=== PATIENT | male | born 1950 | race Caucasian/White ===

== ENCOUNTER → 2017-06-05 12:09 | Outpatient (CLI) | payer MEDICARE, OTHER, SELFPAY | PROVIDERS: Family Provider Family Medicine; PCP Family Medicine; Visit Provider Internal Medicine Pulmonary Disease | DX: J44.9 Chronic obstructive pulmonary disease, unspecified (principal) | CPT/HCPCS: 87070; 87077; 87186; 87205 ==

== ENCOUNTER 2017-08-19 09:42 | Inpatient (IN) | payer MEDICARE, OTHER, SELFPAY ==
--- NOTE | 2017-08-19 11:02 | RAD_ITS ---
STUDY: X-RAY CHEST REASON FOR EXAM: Male, 67 years old. Shortness of breath. History of lung cancer status post right pneumonectomy. TECHNIQUE: Single frontal view of the chest. COMPARISON: December 29, 2016 FINDINGS: The left lung is hyperexpanded and unchanged. There are changes of pneumonectomy on the right with calcification unaltered. There is no demonstrated pleural abnormality. Normal size heart. Normal mediastinum and adolfo. Normal visualized pulmonary arteries. Normal visualized aortic arch and descending thoracic aorta. Normal visualized thoracic spine. Normal visualized ribs, clavicles, and shoulders. There is no demonstrated abnormality of the visualized soft tissue structures of the upper abdomen. RAD/Chest 1 View (Portable) IMPRESSION: Stable appearance of the chest with no new or acute pathology. Electronically Signed: Gerald Tyson MD at 11:33 EDT , Service support ,
--- NOTE | 2017-08-19 12:05 | EKG12_ITS ---
Test Reason : SOB Blood Pressure : / mmHG Vent. Rate : 088 BPM Atrial Rate : 088 BPM P-R Int : 168 ms QRS Dur : 082 ms QT Int : 354 ms P-R-T Axes : 039 -10 044 degrees QTc Int : 428 ms Normal sinus rhythm Normal ECG Confirmed by CARLOS ZEPEDA, REBEL ([id number]), order editor KEYUR MARINELLI ([id number] on 08/25/2017 5:23:47 PM Referred By: Jeferson Burns Confirmed By:REBEL GONZALEZ MD
--- NOTE | 2017-08-19 14:55 | DT_ITS ---
This patient was seen during an EMR downtime August 16, 2017 - August 23, 2017. This patient may have a combination of paper and electronic documentation or all paper documentation. All documentation is viewable within the e-chart portion of [facility] for each patient visit.
--- NOTE | 2017-08-19 16:20 | CT_ITS ---
STUDY: CT CHEST WITHOUT CONTRAST REASON FOR EXAM: Male, 67 years old. Dyspnea and cough RADIATION DOSAGE (If Supplied By Facility): CTDIvol = ( 6.89 ) mGy, DLP = ( 246.37 ) mGycm TECHNIQUE: Transaxial imaging was performed without the administration of intravenous contrast material. Individualized dose optimization techniques were used for this CT. COMPARISON: None. FINDINGS: The right lung have been removed. There is hyperinflation and emphysema in the left lung, ill-defined groundglass opacities are seen in the left lung base may represent superimposed pneumonia. There is no demonstrated pleural abnormality. Normal heart and pericardium. Normal mediastinum. Normal hilar regions. Normal unenhanced pulmonary arteries. Normal aorta arch and descending thoracic aorta. There is demineralization of the thoracic spine. Mild compression fractures of T3, T4, T6 and T9 are noted are new since the previous study from 06/15/2013. There is no demonstrated abnormality of the visualized upper abdomen. CT/Chest without Contrast IMPRESSION: Left lower lobe pneumonia. Osteoporotic compression fractures of T3, T4, T6, T9 are new since the previous study. Electronically Signed: Yosvany Chandler MD at 8:08 EDT Tel , Service support ,
[2017-08-21 13:49] LABS: BUN 17 mg/dL (7-18); Glucose 89 mg/dL (74-106)
[2017-08-21 13:50] LABS: ALB/GLOB Ratio 0.9 RATIO (0.9-2.4); AST(SGOT) 20 U/L (15-37); Alanine Aminotransfer ALT/SGPT 26 U/L (16-61); Albumin, Serum 4.2 g/dL (3.2-5.0); Alkaline Phosphatase 56 U/L (45-117); Anion Gap 12 (5-15); BUN/Creat Ratio 15.3 RATIO (10-20); Calcium,Total 9.7 mg/dL (8.5-10.1); Chloride 102 mmol/L (98-107); Creatinine, Serum 1.11 mg/dL (0.70-1.30); EST Glomerular Filtration Rate 70 mL/min (>60); Est Glom Filt Rate - Afr Amer 85 mL/min (>60); Globulin 4.8 g/dL (2.2-4.2); Potassium 4.1 mmol/L (3.5-5.1); Sodium Level 139 mmol/L (136-145)
[2017-08-22 12:41] LABS: Absolute Lymphocyte Count 1.27 X10^3/ul (0.83-4.51); Absolute Neutrophil Count 6.2 X10^3/uL (2.0-7.7); Basophil% 0.3 % (0-1); Eosinophils% 2.3 % (0-5); Hematocrit 43.6 % (40-54); Hemoglobin 14.4 g/dl (13.0-16.5); Lymphocyte # 1.27 X10^3/ul (4.0); Lymphocyte % 14.6 % (19-41); Mean Corpuscular Hgb 32.1 pg (27.0-32.0); Mean Corpuscular Volume 97.3 fL (80-94); Mean Platelet Vol. 10.4 fl (6.2-12.0); Monocyte% 9.9 % (0-10); Neutrophil # 6.23 X10^3/uL (2.7-7.7); Neutrophil % 71.9 % (47-70); POSITIVE COUNT NO; POSITIVE DIFFERENTIAL NO; POSITIVE MORPHOLOGY NO; Platelet Count 401 K/mm3 (150-450); RBC Distribution Width CV 13.8 % (11.6-14.6); RBC Distribution Width SD 47.8 fl (35.1-43.9); Red Blood Count 4.48 M/mm3 (4.6-6.2); White Blood Count 8.7 K/mm3 (4.4-11.0)
[2017-08-22 12:42] LABS: Basophil# 0.03 X10^3/uL; Monocyte# 0.86 X10^3/uL; Prothrombin Time (Protime)PT. 13.3 SECONDS (11.7-14.9)
[2017-08-23 11:29] LABS: Hematocrit 35.1 % (40-54); Hemoglobin 11.5 g/dl (13.0-16.5); Mean Corp Hgb Conc 32.8 g/gl (32-36); Mean Corpuscular Hgb 31.9 pg (27.0-32.0); Mean Corpuscular Volume 97.2 fL (80-94); Mean Platelet Vol. 10.2 fl (6.2-12.0); Platelet Count 381 K/mm3 (150-450); RBC Distribution Width CV 13.7 % (11.6-14.6); RBC Distribution Width SD 46.6 fl (35.1-43.9); Red Blood Count 3.61 M/mm3 (4.6-6.2); Scan Indicated on CBC? Y/N NO; White Blood Count 7.1 K/mm3 (4.4-11.0)
== END 2017-08-22 11:45 | disposition home or self-care (01) | DRG 189 ==
LOC: ED 14:55 → MS3 14:56
PROVIDERS: Admitting Provider Internal Medicine; Emergency Provider Emergency Medicine; Family Provider Family Medicine; PCP Family Medicine; Visit Provider Internal Medicine
DX: J96.01 Acute respiratory failure with hypoxia (principal); J47.0 Bronchiectasis with acute lower respiratory infection; E44.0 Moderate protein-calorie malnutrition; A49.01 Methicillin susceptible Staphylococcus aureus infection, unspecified site; J44.9 Chronic obstructive pulmonary disease, unspecified; R63.4 Abnormal weight loss; I10 Essential (primary) hypertension; E78.5 Hyperlipidemia, unspecified; F41.9 Anxiety disorder, unspecified; Z85.118 Personal history of other malignant neoplasm of bronchus and lung; Z90.2 Acquired absence of lung [part of]
CPT/HCPCS: 36415; 71045; 71250; 80053; 84484; 85025; 85027; 85610; 87040; 87070; 87077; 87186; 87205; 93005; 94640; 94762; 96365; 96366; 96368; 97802; 99284; J7030; J7050; A4216

== ENCOUNTER → 2017-10-05 08:00 | Outpatient (CLI) | payer MEDICARE, OTHER, SELFPAY | PROVIDERS: Family Provider Family Medicine; PCP Family Medicine; Visit Provider Internal Medicine Pulmonary Disease | DX: J47.9 Bronchiectasis, uncomplicated (principal) | CPT/HCPCS: 87070; 87077; 87186; 87205 ==

== ENCOUNTER → 2017-11-19 09:30 | Outpatient (CLI) | payer MEDICARE, OTHER, SELFPAY | PROVIDERS: Family Provider Family Medicine; PCP Family Medicine; Visit Provider Internal Medicine Pulmonary Disease | DX: J44.9 Chronic obstructive pulmonary disease, unspecified (principal); Z86.19 Personal history of other infectious and parasitic diseases | CPT/HCPCS: 87070; 87077; 87186; 87205 ==

== ENCOUNTER → 2017-11-26 15:02 | Outpatient (CLI) | payer MEDICARE, OTHER, SELFPAY ==
--- NOTE | 2017-11-26 15:08 | RAD_ITS ---
STUDY: X-RAY CHEST REASON FOR EXAM: Male, 67 years old. Fever and cough TECHNIQUE: PA and lateral views of the chest. COMPARISON: 08/19/2017 FINDINGS: Again evidence of previous right pneumonectomy Left lung shows chronic interstitial changes without a superimposed process. There is no demonstrated pleural abnormality. Normal size heart. Normal mediastinum and adolfo. Normal visualized pulmonary arteries. Normal visualized aortic arch and descending thoracic aorta. Normal visualized thoracic spine. Postsurgical changes noted in the right ribs. There is no demonstrated abnormality of the visualized soft tissue structures of the upper abdomen. RAD/Chest PA and Lateral IMPRESSION: No interval change Electronically Signed: Td March MD at 15:43 EDT , Service support ,
== END ==
PROVIDERS: Family Provider Family Medicine; PCP Family Medicine; Visit Provider Internal Medicine Pulmonary Disease
DX: J44.9 Chronic obstructive pulmonary disease, unspecified (principal); R05 Cough
CPT/HCPCS: 71046

== ENCOUNTER → 2017-12-20 14:16 | Outpatient (CLI) | payer MEDICARE, OTHER, SELFPAY | PROVIDERS: Family Provider Family Medicine; PCP Family Medicine; Referring Provider Internal Medicine Pulmonary Disease; Visit Provider Internal Medicine Pulmonary Disease | DX: R05 Cough (principal) | CPT/HCPCS: 87070; 87077; 87186; 87205 ==

== ENCOUNTER → 2018-01-13 16:40 | Outpatient (CLI) | payer MEDICARE, OTHER, SELFPAY | PROVIDERS: Family Provider Family Medicine; PCP Family Medicine; Referring Provider Internal Medicine Pulmonary Disease; Visit Provider Internal Medicine Pulmonary Disease | DX: R19.7 Diarrhea, unspecified (principal) | CPT/HCPCS: 87493 ==

== ENCOUNTER → 2018-02-11 13:17 | Outpatient (CLI) | payer MEDICARE, OTHER, SELFPAY ==
--- OUTSIDE RECORDS SUMMARY | 2018-04-08 12:27 | XMS RPT_ITS ---
:1950 Author Organization OH[employer] Support Name Relationship Address Phone CARR, YESENIA Unavailable [address] + [place] [address] R Unavailable Unavailable Unavailable CARR, YESENIA Unavailable [address] + [place] [address] R Unavailable Unavailable Unavailable CARR, YEESNIA Unavailable [address] + [place] [address] R Unavailable Unavailable Unavailable CARR, YESENIA Unavailable [address] + [place] [address] R Unavailable Unavailable Unavailable CARR, YESENIA Unavailable [address] + [place] [address] R Unavailable Unavailable Unavailable CARR, YESENIA Unavailable [address] + [place] [address] R Unavailable Unavailable Unavailable CARR, YESENIA Unavailable [address] + [place] [address] R Unavailable Unavailable Unavailable CARR, YESENIA Unavailable [address] + [place] [address] R Unavailable Unavailable Unavailable CARR, YESENIA Unavailable [address] + [place] [address] R Unavailable Unavailable Unavailable CARR, YESENIA Unavailable [address] + [place] [address] R Unavailable Unavailable Unavailable CARR, YESENIA Unavailable [address] + [place] [address] R Unavailable Unavailable Unavailable CARR, YESENIA Unavailable [address] + [place] [address] R Unavailable Unavailable Unavailable Care Team Providers Name Role Phone Pj Graham Attending Unavailable Chidi Marinelli Primary Care Unavailable Jeferson Burns Attending Unavailable Tereletsky, Jeferson Referring Unavailable Marinelli, Chidi Primary Care Unavailable Tereletsky, Jeferson Admitting Unavailable Rufinoeletsky, Jeferson Attending Unavailable Alisha Malone, KEYPUNCHER-C Attending Unavailable Alisha Malone, KEYPUNCHER-C Attending Unavailable Alisha Malone, KEYPUNCHER-C Attending Unavailable Sibilia, Pj Attending Unavailable Sibilia, Pj Referring Unavailable Marinelli, Chidi Primary Care Unavailable Sibilia, Pj Attending Unavailable Sibilia, Pj Referring Unavailable Marinelli, Chidi Primary Care Unavailable Sibilia, Pj Attending Unavailable Sibilia, Pj Referring Unavailable Marinelli, Chidi Primary Care Unavailable Sibilia, Pj Attending Unavailable Sibilia, Pj Referring Unavailable Marinelli, Chidi Primary Care Unavailable Sibilia, Pj Attending Unavailable Marinelli, Chidi Primary Care Unavailable Sibilia, Pj Referring Unavailable Sibilia, Pj Attending Unavailable PROBLEMS PROBLEMS DATE TYPE CONDITION / CODE ATTENDING STATUS SOURCE 02/11/2018 Unknown R05 - Cough / Sibilia, Pj Active [place] R05(ICD-10) [facility] Hospital Repository 01/14/2018 Unknown R19.7 - Diarrhea, Sibilia, Pj Active [place] unspecified / [facility] R19.7(ICD-10) Hospital Repository PROCEDURES PROCEDURES No Procedure Records FoundRESULTS RESULTS Observed: 02/11/2018 Status: F Source: [place] CULTURE, SPUTUM 1:19 PM [facility] REPOSITORY Gram Stain Acceptable Specimen? Yes (<25 Epithelial cells per/lpf) Gram Stain 1+ White Blood Cells 1+ Gram positive cocci Very Rare Epithelial cells Resp. Culture Mixed normal respiratory veronica. No Haemophilus, Streptococcus pneumoniae, beta-hemolytic Streptococcus or Staphylococcus aureus isolated. 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 Approval by Infectious Disease Specialist required before non-formulary drugs may be ordered and/or dispensed. Performed By: #### M100.0800 #### [facility] [place], [address] Observed: 01/13/2018 Status: F Source: [place] CDIFF (MOLECULAR) 4:15 PM [facility] REPOSITORY SEND RESULTS TO ALSO Cdiff-Molecular Normal Reference Range = Negative C. Diff DNA Negative- No toxigenic C. Diff DNA Detected NAAT METHOD Testing was performed using nucleic acid amplification Performed By: #### M100.6796 #### [facility] [address] [place], [address] Observed: 12/20/2017 Status: F Source: [place] CULTURE, SPUTUM 1:30 PM [facility] REPOSITORY Gram Stain Acceptable Specimen? Yes (<25 Epithelial cells per/lpf) Gram Stain 1+ Gram positive cocci 1+ Gram negative rods 1+ White Blood Cells Resp. Culture RESULTS CALLED TO /SALIMA 12/23/17 [id number] Michelle Howell. Copy of report sent to Infection Control Printer [id number] 12/23/17 6096 KIKANNON. ORGANISM 1: Achromobacter xylosoxidans Amount Growth 2+ ORGANISM 2: Meth. resistant Staph. aureus Amount Growth 2+ Achromobacter xylosoxidans: REACTION Cefepime $ 32 R Ceftazidime *NF 4 S Ceftriaxone $ >=64 R Ciprofloxacin $ >=4 R Gentamicin $ >=16 R Imipenem *NF 1 S Levofloxacin $ 4 I Piperacillin/Tazobactam $$ <=4 S Tobramycin $ 8 I Trimethoprim/Sulfametho $ <=20 S (NF) indicates non-formulary drug at [facility]. Approval by Infectious Disease Specialist required before non-formulary drugs may be ordered and/or dispensed. Meth. resistant Staph. aureus: REACTION Benzylpenicillin NF >=0.5 R Cefoxitin *NF + Clindamycin $$ <=0.25 R Inducable Clindamycin Resistan + Erythromycin $ 4 R Gentamicin $ <=0.5 S Levofloxacin $ 0.25 S Linezolid $$$$ 4 S Oxacillin NF >=4 R Tigecycline $$$$ <=0.12 S Rifampin $$ <=0.5 S Tetracycline NF <=1 S Trimethoprim/Sulfametho $ <=10 S Vancomycin $ 1 S (NF) indicates non-formulary drug at [facility]. Approval by Infectious Disease Specialist required before non-formulary drugs may be ordered and/or dispensed. * CLSI guidelines does not recommend testing of cephalosporins. This interpretation is deduced from Beta-lactam/penicillin results. Performed By: #### M100.0800 #### [facility] [address] [place], [address] CHEST PA AND LATERAL Observed: 11/26/2017 Status: F Source: [place] 3:08 PM [facility] REPOSITORY [facility] Imaging Services [address] [place] [address] Chest PA and Lateral MR#: [id number] Acct: [id number] Name: PJ PERERA Rep #: [id number] : 1950 M 67 From: Tani March MD PCP: Chidi Marinelli MD Status: REG CLI Study: Chest PA and Lateral Date of Exam: 11/26/17 Exam# [id number] Ordering Dr: Pj Graham MD STUDY: X-RAY CHEST REASON FOR EXAM: Male, 67 years old. Fever and cough TECHNIQUE: PA and lateral views of the chest. COMPARISON: 08/19/2017 FINDINGS: Again evidence of previous right pneumonectomy Left lung shows chronic interstitial changes without a superimposed process. There is no demonstrated pleural abnormality. Normal size heart. Normal mediastinum and adolfo. Normal visualized pulmonary arteries. Normal visualized aortic arch and descending thoracic aorta. Normal visualized thoracic spine. Postsurgical changes noted in the right ribs. There is no demonstrated abnormality of the visualized soft tissue structures of the upper abdomen. RAD/Chest PA and Lateral IMPRESSION: No interval change Electronically Signed: Td March MD at 15:43 EDT , Service support , CC: Chidi Marinelli MD; Pj Graham MD Lube Technician: Signed Observed: 11/19/2017 Status: F Source: [place] CULTURE, SPUTUM 9:30 AM [facility] REPOSITORY Gram Stain Acceptable Specimen? Yes (<25 Epithelial cells per/lpf) Gram Stain 2+ Gram positive cocci Rare White Blood Cells No Epithelial cells Resp. Culture Mixed normal respiratory veronica. No Haemophilus, Streptococcus pneumoniae, beta-hemolytic Streptococcus or Staphylococcus aureus isolated. ORGANISM 1: Achromobacter xylosoxidans Amount Growth 3+ Achromobacter xylosoxidans: REACTION Cefepime $ 16 I Ceftazidime *NF 4 S Ceftriaxone $ >=64 R Ciprofloxacin $ >=4 R Gentamicin $ >=16 R Imipenem *NF 1 S Levofloxacin $ >=8 R Piperacillin/Tazobactam $$ <=4 S Tobramycin $ 8 I Trimethoprim/Sulfametho $ <=20 S (NF) indicates non-formulary drug at [facility]. Approval by Infectious Disease Specialist required before non-formulary drugs may be ordered and/or dispensed. Performed By: #### M100.0800 #### [facility] [place], [address] Observed: 10/06/2017 Status: F Source: [place] CULTURE, SPUTUM 8:50 PM [facility] REPOSITORY Gram Stain Acceptable Specimen? Yes (<25 Epithelial cells per/lpf) Gram Stain 3+ White Blood Cells 2+ Gram positive cocci Resp. Culture NO NORMAL VERONICA ISOLATED. ORGANISM 1: Staphylococcus aureus Amount Growth 3+ Staphylococcus aureus: REACTION Benzylpenicillin NF >=0.5 R Cefoxitin *NF - Clindamycin $$ <=0.25 R Inducable Clindamycin Resistan + Erythromycin $ >=8 R Gentamicin $ <=0.5 S Levofloxacin $ <=0.12 S Linezolid $$$$ 2 S Moxifloxicin *NF <=0.25 S Oxacillin NF 1 S Tigecycline $$$$ <=0.12 S Rifampin $$ <=0.5 S Tetracycline NF <=1 S Trimethoprim/Sulfametho $ <=10 S Vancomycin $ 1 S (NF) indicates non-formulary drug at [facility]. Approval by Infectious Disease Specialist required before non-formulary drugs may be ordered and/or dispensed. * CLSI guidelines does not recommend testing of cephalosporins. This interpretation is deduced from Beta-lactam/penicillin results. Performed By: #### M100.0800 #### [facility] [address] [place], [address] DOWNTIME REPORT Observed: 09/01/2017 Status: F Source: [place] 3:09 PM [facility] Medical Records Department [address] [address] Downtime Report MR#: [id number] Acct: [id number] Name: PJ PERERA Rep #: [id number] : 1950 67 From: Viraj Marinelli MD PCP: Chidi Marinelli MD Status: DIS IN This patient was seen during an EMR downtime August 16, 2017 - August 23, 2017. This patient may have a combination of paper and electronic documentation or all paper documentation. All documentation is viewable within the e-chart portion of [employer] for each patient visit. 12 LEAD ELECTROCARDIOGRAM Observed: 08/30/2017 Status: F Source: [place] 8:43 AM [facility] Cardiovascular Services [address] [place] [address] 12 Lead EKG 08/19/17 1025 MR#: [id number] Acct: [id number] Name: PJ PERERA Rep #: [id number] : 1950 67 From: Malcom Henao MD Attending Dr: Jeferson Burns DO Status: DIS IN Ordering Dr: Jeferson Burns DO Date: 08/19/17 Location: MS3 Sex: M C Admitted: 08/19/17 Test Reason : SOB Blood Pressure : / mmHG Vent. Rate : 088 BPM Atrial Rate : 088 BPM P-R Int : 168 ms QRS Dur : 082 ms QT Int : 354 ms P-R-T Axes : 039 -10 044 degrees QTc Int : 428 ms Normal sinus rhythm Normal ECG Confirmed by MALCOM HENAO MD ([id number]), content editor KEYUR MARINELLI ([id number]) on 08/25/2017 5:23:47 PM Referred By: Jeferson Burns Confirmed By:MALCOM HENAO MD 08/25/17 1723 Date Malcom Henao MD CC: Chidi Marinelli MD; Jeferson Bruns DO Signed CHEST 1 VIEW Observed: 08/20/2017 Status: F Source: [place] (PORTABLE) 11:03 AM [facility] REPOSITORY [facility] Imaging Services [address] [place] [address] Chest 1 View (Portable) MR#: [id number] Acct: [id number] Name: PJ PERERA Rep #: [id number] : 1950 M 67 From: Gerald Tyson MD PCP: Chidi Marinelli MD Status: DIS IN Study: Chest 1 View (Portable) Date of Exam: 08/19/17 Exam# [id number] Ordering Dr: Dinora Marie MD STUDY: X-RAY CHEST REASON FOR EXAM: Male, 67 years old. Shortness of breath. History of lung cancer status post right pneumonectomy. TECHNIQUE: Single frontal view of the chest. COMPARISON: December 29, 2016 FINDINGS: The left lung is hyperexpanded and unchanged. There are changes of pneumonectomy on the right with calcification unaltered. There is no demonstrated pleural abnormality. Normal size heart. Normal mediastinum and adolfo. Normal visualized pulmonary arteries. Normal visualized aortic arch and descending thoracic aorta. Normal visualized thoracic spine. Normal visualized ribs, clavicles, and shoulders. There is no demonstrated abnormality of the visualized soft tissue structures of the upper abdomen. RAD/Chest 1 View (Portable) IMPRESSION: Stable appearance of the chest with no new or acute pathology. Electronically Signed: Gerald Tyson MD at 11:33 EDT , Service support , CC: MD Saleem Marie; Chidi Marinelli MD Lube Technician: Signed CBC-COMPLETE BLOOD CNT Collected: 08/20/2017 Status: F Source: [place] NO DIFF 12:00 AM [facility] REPOSITORY Order Comment: RESULT(S) PREVIOUSLY REPORTED ON MANUAL REQUISITION DURING DOWNTIME. TYPE CODE TESTS RESULT OUT OF RANGE REFERENCE UNITS LAB L100.1000 4.4-11.0 K/mm3 Normal WBC 7.1 LAB L100.1200 4.6-6.2 M/mm3 Low RBC 3.61 LAB L100.1300 13.0-16.5 g/dl Low HGB 11.5 LAB L100.1400 40-54 % Low HCT 35.1 LAB L100.1500 80-94 fL High MCV 97.2 LAB L100.1600 27.0-32.0 pg Normal MCH 31.9 LAB L100.1700 32-36 g/gl Normal MCHC 32.8 LAB L100.1810 11.6-14.6 % Normal RDW CV 13.7 LAB L100.1820 35.1-43.9 fl High RDW SD 46.6 LAB L100.1900 150-450 K/mm3 Normal PLT 381 LAB L100.2000 6.2-12.0 fl Normal MPV 10.2 Performed By: #### L100.0500 #### [facility] [address] [facility] [place], [address] CHEST WITHOUT Observed: 08/19/2017 Status: F Source: [place] CONTRAST 4:20 PM [facility] REPOSITORY [facility] Imaging Services [address] [place] [address] Chest without Contrast MR#: [id number] Acct: [id number] Name: TREVERPJ Nevaeh Rep #: [id number] : 1950 M 67 From: Yosvany Chandler MD PCP: Chidi Marinelli MD Status: ADM IN Study: Chest without Contrast Date of Exam: 08/19/17 Exam# [id number] Ordering Dr: Jeferson Burns DO STUDY: CT CHEST WITHOUT CONTRAST REASON FOR EXAM: Male, 67 years old. Dyspnea and cough RADIATION DOSAGE (If Supplied By Facility): CTDIvol = ( 6.89 ) mGy, DLP = ( 246.37 ) mGycm TECHNIQUE: Transaxial imaging was performed without the administration of intravenous contrast material. Individualized dose optimization techniques were used for this CT. COMPARISON: None. FINDINGS: The right lung have been removed. There is hyperinflation and emphysema in the left lung, ill-defined groundglass opacities are seen in the left lung base may represent superimposed pneumonia. There is no demonstrated pleural abnormality. Normal heart and pericardium. Normal mediastinum. Normal hilar regions. Normal unenhanced pulmonary arteries. Normal aorta arch and descending thoracic aorta. There is demineralization of the thoracic spine. Mild compression fractures of T3, T4, T6 and T9 are noted are new since the previous study from 06/15/2013. There is no demonstrated abnormality of the visualized upper abdomen. CT/Chest without Contrast IMPRESSION: Left lower lobe pneumonia. Osteoporotic compression fractures of T3, T4, T6, T9 are new since the previous study. Electronically Signed: Yosvany Chandler MD at 8:08 EDT Tel , Service support , CC: Chidi Marinelli MD; Jeferson Burns DO Lube Technician: Signed Observed: 08/19/2017 Status: F Source: [place] CULTURE, SPUTUM 1:25 PM [facility] REPOSITORY Gram Stain Acceptable Specimen? Yes (<25 Epithelial cells per/lpf) Gram Stain 1+ White Blood Cells 4+ Gram positive cocci Resp. Culture ORGANISM 1: Staphylococcus aureus Amount Growth 3+ Staphylococcus aureus: REACTION Clindamycin $$ >=8 R Inducable Clindamycin Resistan NEG Erythromycin $ >=8 R Gentamicin $ <=0.5 S Levofloxacin $ <=0.12 S Linezolid $$$$ 2 S Moxifloxicin *NF <=0.25 S Oxacillin NF <=0.25 S Tigecycline $$$$ <=0.12 S Rifampin $$ <=0.5 S Tetracycline NF <=1 S Trimethoprim/Sulfametho $ <=10 S Vancomycin $ <=0.5 S (NF) indicates non-formulary drug at [facility]. Approval by Infectious Disease Specialist required before non-formulary drugs may be ordered and/or dispensed. * CLSI guidelines does not recommend testing of cephalosporins. This interpretation is deduced from Beta-lactam/penicillin results. Performed By: #### M100.0800 #### [facility] [address] [place], [address] Observed: 08/19/2017 Status: P Source: [place] CULTURE, BLOOD (WB) 10:45 AM [facility] REPOSITORY BC No growth in 48 hours. Performed By: #### M200.1000 #### [facility] [address] [place], [address] Observed: 08/19/2017 Status: P Source: [place] CULTURE, BLOOD (WB) 10:10 AM [facility] REPOSITORY BC No growth in 48 hours. Performed By: #### M200.1000 #### [facility] [address] [place], [address] COMPREHENSIVE METABOLIC Collected: 08/19/2017 Status: F Source: [place] PROFIL 12:00 AM [facility] REPOSITORY Order Comment: RESULT(S) PREVIOUSLY REPORTED ON MANUAL REQUISITION DURING DOWNTIME. 'TROP' Serial specimen #1, #2, #3, or #4: 1 TYPE CODE TESTS RESULT OUT OF RANGE REFERENCE UNITS LAB L501.0100 74-106 mg/dL Normal GLU 89 Result Comment: Please note revised GLUCOSE reference range effective 2017. LAB L501.1000 7-18 mg/dL Normal BUN 17 LAB L501.1100 0.70-1.30 mg/dL Normal CREAT,SERUM 1.11 Result Comment: The validity of the calculated GFR AND GFRAA in patients over 70 years has not been determined. Clinical correlation is essential. LAB L501.1110 >60 mL/min Normal EST GFR 70 LAB L501.1115 >60 mL/min Normal EST GFR - AA 85 LAB L501.1300 10-20 RATIO Normal BUN/CRE 15.3 LAB L501.1500 6.4-8.2 g/dL High T PROT 9.0 LAB L501.1800 3.2-5.0 g/dL Normal ALB 4.2 LAB L501.1950 2.2-4.2 g/dL High GLOB 4.8 LAB L501.2000 0.9-2.4 RATIO Normal A/G 0.9 LAB L501.2200 8.5-10.1 mg/dL Normal CA 9.7 LAB L501.4100 15-37 U/L Normal AST 20 LAB L501.4305 45-117 U/L Normal ALK P 56 LAB L501.4405 16-61 U/L Normal ALT 26 LAB L501.4600 0.20-1.00 mg/dL Normal T BILI 0.30 LAB L501.5300 136-145 mmol/L Normal NA 139 LAB L501.5600 3.5-5.1 mmol/L Normal K 4.1 LAB L501.5900 98-107 mmol/L Normal CL 102 LAB L501.6100 21.0-32.0 mmol/L Normal CO2 25.0 LAB L501.6200 5-15 Normal GAP 12 Performed By: #### L500.4050, L501.4010 #### [facility] [address] [place], [address] TROPONIN-I Collected: 08/19/2017 Status: F Source: [place] 12:00 AM [facility] REPOSITORY Order Comment: RESULT(S) PREVIOUSLY REPORTED ON MANUAL REQUISITION DURING DOWNTIME. 'TROP' Serial specimen #1, #2, #3, or #4: 1 TYPE CODE TESTS RESULT OUT OF RANGE REFERENCE UNITS LAB L501.4010 <0.045 ng/mL Normal < 0.015 TROPONIN-I Result Comment: TROPONIN-I EXPECTED VALUES <0.045 Negative 0.045 - 0.590 Consistent with Cardiac Damage > OR = 0.600 Critical Value Not every elevated troponin is indicative of HI. These values should be used with clinical judgement in examining the patient's clinical picture for diagnosis. To establish a diagnosis of HI versus myocardial injury, there must be a demonstrated rise and/or fall in the troponin values, in addition to ischemic symptoms, EKG changes, new regional wall motion abnormality, and/or angiographical evidence. PLEASE NOTE: REFERENCE RANGES EDITED 17 Performed By: #### L500.4050, L501.4010 #### [facility] [address] [place], [address] CBC W/DIFF, AUTOMATED Collected: 08/19/2017 Status: F Source: [place] 12:00 AM [facility] REPOSITORY Order Comment: RESULT(S) PREVIOUSLY REPORTED ON MANUAL REQUISITION DURING DOWNTIME. TYPE CODE TESTS RESULT OUT OF RANGE REFERENCE UNITS LAB L100.1000 4.4-11.0 K/mm3 Normal WBC 8.7 LAB L100.1200 4.6-6.2 M/mm3 Low RBC 4.48 LAB L100.1300 13.0-16.5 g/dl Normal HGB 14.4 LAB L100.1400 40-54 % Normal HCT 43.6 LAB L100.1500 80-94 fL High MCV 97.3 LAB L100.1600 27.0-32.0 pg High MCH 32.1 LAB L100.1700 32-36 g/gl Normal MCHC 33.0 LAB L100.1810 11.6-14.6 % Normal RDW CV 13.8 LAB L100.1820 35.1-43.9 fl High RDW SD 47.8 LAB L100.1900 150-450 K/mm3 Normal PLT 401 LAB L100.2000 6.2-12.0 fl Normal MPV 10.4 LAB L100.2100 47-70 % High NEUT% 71.9 LAB L100.2200 19-41 % Low LY% 14.6 LAB L100.2300 0-10 % Normal MONO% 9.9 LAB L100.2400 0-5 % Normal EO% 2.3 LAB L100.2500 0-1 % Normal BASO% 0.3 LAB L100.2550 0.0-0.9 % High IM GRAN % 1.000 Result Comment: IG% - Immature Granulocytes (promyelocytes, myelocytes and metamyelocytes) > 1% indicates that a LEFT SHIFT is Present. LAB L100.2620 2.0-7.7 X10 3/uL Normal Absolute Neut 6.2 LAB L100.2720 0.83-4.51 X10 3/ul Normal Absolute Lymph 1.27 Performed By: #### L100.0100 #### [facility] [address] [place], [address] PROTHROMBIN TIME W/INR Collected: 08/19/2017 Status: F Source: [place] 12:00 AM [facility] REPOSITORY Order Comment: RESULT(S) PREVIOUSLY REPORTED ON MANUAL REQUISITION DURING DOWNTIME. TYPE CODE TESTS RESULT OUT OF RANGE REFERENCE UNITS LAB L300.4150 11.7-14.9 SECONDS Normal PROTIME 13.3 LAB L300.4200 Normal INR 1.0 Performed By: #### L300.3900 #### [facility] [address] [place], [address] Observed: 06/05/2017 Status: F Source: [place] CULTURE, SPUTUM 12:10 PM [facility] REPOSITORY Gram Stain Acceptable Specimen? Yes (<25 Epithelial cells per/lpf) Gram Stain 1+ White Blood Cells No Epithelial cells 3+ Gram positive cocci in clusters Resp. Culture NO NORMAL RESPIRATORY VERONICA ISOLATED ORGANISM 1: Staphylococcus aureus Amount Growth 3+ Staphylococcus aureus: REACTION Benzylpenicillin NF >=0.5 R Cefoxitin *NF - Clindamycin $$ <=0.25 R Inducable Clindamycin Resistan + Erythromycin $ >=8 R Gentamicin $ <=0.5 S Levofloxacin $ 0.25 S Linezolid $$$$ 2 S Moxifloxicin *NF <=0.25 S Oxacillin NF 0.5 S Tigecycline $$$$ <=0.12 S Rifampin $$ <=0.5 S Tetracycline NF <=1 S Trimethoprim/Sulfametho $ <=10 S Vancomycin $ <=0.5 S (NF) indicates non-formulary drug at [facility]. Approval by Infectious Disease Specialist required before non-formulary drugs may be ordered and/or dispensed. * CLSI guidelines does not recommend testing of cephalosporins. This interpretation is deduced from Beta-lactam/penicillin results. Performed By: #### M100.0800 #### [facility] [address] [place], [address] ALLERGIES ALLERGIES DATE TYPE / CODE NAME / CODE REACTION SEVERITY SOURCE 07/14/2014 Drug Sulfa Hives Unknown [facility] Allergy/4160 ([facility] 7[facility]17(SNOMED Antibiotics)/ Repository CT) [id number](RX NORM) ENCOUNTERS ENCOUNTERS ADMIT/DISCHARGE ACCOUNT ADMITTING ENCOUNTER LOCATION SOURCE NUMBER CLASS 02/11/2018 [id number] Ambulatory [place] 6 [facility] ing:LABSPEC Repository 01/13/2018 [id number] Ambulatory [place] Sol 8 [facility] ing:LABSPEC Repository 12/20/2017 [id number] Ambulatory [place] 5 [facility] ing:LAB Repository 11/26/2017 [id number] Ambulatory [place] [facility] ing:MTRAD Repository 11/19/2017 [id number] Ambulatory [place] 7 [facility] ing:LABSPEC Repository 10/05/2017 [id number] Ambulatory [place] Sol 1 [facility] ing:LAB Repository 08/19/2017/ [id number] [place] [place] 8 0 Jeferson [facility] ing:IP1Lwpg: Repository [id number]: 1 08/19/2017/ [id number] Ambulatory [facility]:W [place] 8 3 [facility] Repository 08/19/2017/ [id number] Ambulatory BMSBuilding:[place] 8 5 Man [facility] Repository 08/19/2017/ [id number] Ambulatory [facility]Building:W [place] 8 6 [facility] Repository 08/19/2017/ [id number] Ambulatory BMSBuilding:W [place] 8 8 [facility] Repository 06/05/2017 [id number] Ambulatory [place] 5 [facility] Hospital ing:LABSPEC Repository PAYERS PAYERS ENCOUNTER GUARANTOR PAYER SUBSCRIBER SOURCE 02/11/2018 PJ Herring Primary PJ [id number] Insurance:MEDICARE RICHEYDOB: Critical access hospital PART A [facility] [id number] Number: Repository [id number]: [phone] [id number] [phone] () Date:2018-02-11 02/11/2018 Secondary PJ Horton Insurance:Medical Center Clinic: [facility] Number: [id number] Hospital [id number] Repository Date:4866-54-23ES [address]ULRNRQJ, [place] [address]SW: 02/11/2018 Tertiary NOT GIVENUNK [place] Insurance:SELF PAY [facility] Number: Effective Repository Date:2018-02-11 01/13/2018 PJ M Primary PJ Horton [id number] Insurance:MEDICARE RICHEYDOB: Community [place] PART A [facility] [id number] Number: Repository [id number]: [phone] [id number] [phone] () Date:2018-01-13 01/13/2018 Secondary PJ M [place] Insurance:AARPPolicy [facility] Number: [id number] Hospital [id number] Repository Date:9384-98-64KO [address]DFX[place]BM, [place] [address]IM: 01/13/2018 Tertiary NOT GIVENUNK [place] Insurance:SELF PAY [facility] Number: Effective Repository Date:2018-01-13 12/20/2017 PJ M Primary PJ M Sol [id number] Insurance:MEDICARE RICHEYDOB: Community [place] PART A [facility] [id number][place] Number: Repository [id number]: [phone] [id number] [phone] (HP) Date:2017-12-20 12/20/2017 Secondary PJ M Sol Insurance:AARPPolicy RICHEYDOB: Community Number: [id number] Hospital [id number] Repository Date:1733-12-02QW [facility] [address], [place] [address]XQ: 12/20/2017 Tertiary NOT GIVENUNK [place] Insurance:SELF PAY [facility] Number: Effective Repository Date:2017-12-20 11/26/2017 Pj M Primary Pj M [place] [id number] Insurance:MEDICARE RicheyDOB: Community [place] PART A [facility] [id number] [place] Number: Repository [id number]: [phone] [id number] [phone] () Date:2017-11-26 11/26/2017 Secondary Pj M [place] Insurance:AARPPolicy RicheyDOB: Community Number: [id number] Hospital [id number] Repository Date:3690-75-83WF [address]KFXUREU, [place] [address]ID: 11/26/2017 Tertiary NOT GIVENUNK [place] Insurance:SELF PAY [facility] Number: Effective Repository Date:2017-11-26 11/19/2017 Pj M Primary Pj M [place] [id number] Insurance:[facility]ARE [facility] PART A [facility] [id number] Number: Repository [address]Dbn: 330 [id number] [phone] () Date:2017-11-19 11/19/2017 Secondary Pj M Sol Insurance:AARolicy LibertyDOB: Community Number: [id number] Hospital [id number] Repository Date:6231-43-03QR [address], [place] [address]XJ: 11/19/2017 Tertiary NOT GIVENUNK [place] Insurance:SELF PAY [facility] Number: Effective Repository Date:2017-11-19 10/05/2017 Pj M Primary Pj M [place] [id number] Insurance:MEDICARE [facility] PART A [facility] [id number] Number: Repository [address]Qac: 330 [id number] [phone] (HP) Date:2017-10-05 10/05/2017 Secondary Pj M [place] [facility] Hospit[facility] Community Number: [id number] Hospital [id number] Repository Date:7081-39-43FT [address]WVH, [place] [address]TX: 10/05/2017 Tertiary NOT GIVENUNK [place] Insurance:SELF PAY [facility] Number: Effective Repository Date:2017-10-05 08/19/2017 Pj M Primary Pj M [place] [id number] Insurance:MEDICARE RicheyDOB: Community [place] PART A [facility] [id number] Number: Repository [address]Xxi: 330 [id number] [phone] (HP) Date:2017-08-19 08/19/2017 Secondary Pj M [place] Insurance:AARPPolicy RicheyDOB: Community Number: [id number] Hospital [id number] Repository Date:0900-15-20YO [address]ZGPKPNR, [place] [address]XL: 08/19/2017 Tertiary NOT GIVENUNK [place] Insurance:SELF PAY [facility] Number: Effective Repository Date:2017-08-19 08/19/2017 Pj M Primary Pj M [place] [id number] Insurance:MEDICARE RicheyDOB: Community [place] PART A [facility] [id number] Number: Repository [address]Xeq: 330 [id number] [phone] (HP) Date:2017-08-19 08/19/2017 Secondary Pj M [place] Insurance:AARPPolicy RicheyDOB: Community Number: [id number] Hospital [id number] Repository Date:5211-68-01EO [address]F[place]XB[place], [place] [address]TY: 08/19/2017 Tertiary NOT GIVENUNK [place] Insurance:SELF PAY [facility] Number: Effective Repository Date:2017-08-19 08/19/2017 Pj M Primary Pj M [place] [id number] Insurance:MEDICARE RicheyDOB: Community [place] PART A [facility] [id number] Number: Repository [address]Wja: 330 [id number] [phone] (HP) Date:2017-08-19 08/19/2017 Secondary Pj M [place] Insurance:AARPPolicy RicheyDOB: Community Number: [id number] Hospital [id number] Repository Date:1143-67-83XA [address]TJHPUXF, [place] [address]JO: 08/19/2017 Tertiary NOT GIVENUNK [place] Insurance:SELF PAY [facility] Number: Effective Repository Date:2017-08-19 08/19/2017 Pj M Primary Pj [id number] Insurance:MEDICARE RicheyDOB: Community [place] PART A [facility] [id number] [facility] [place] Number: Repository [address]Tmn: [phone] [id number] [phone] (HP) Date:2017-08-19 08/19/2017 Secondary Pj M [place] Insurance:AARPPolicy [facility] Number: [id number] Hospital [id number] Repository Date:4400-66-51HZ [address]YHKGEOV, [place] [address]MS: 08/19/2017 Tertiary NOT GIVENUNK [place] Insurance:SELF PAY [facility] Number: Effective Repository Date:2017-08-19 08/19/2017 Pj M Primary Pj [id number] Insurance:MEDICARE RicheyDOB: Community [place] PART A [facility] [id number] [place] Number[place] Repository [id number]: [phone] [id number] [phone] (HP) Date:2017-08-19 08/19/2017 Secondary Pj M [place] Insurance:AARPPolicy [facility] Community Number: [id number] Hospital [id number] Repository Date:6388-31-40YR [address]SSPXHNL, [place] [address]LX: 08/19/2017 Tertiary NOT GIVENUNK [place] Insurance:SELF PAY [facility] Number: Effective Repository Date:2017-08-19 06/05/2017 Pj M Primary Pj eNvaeh [id number] Insurance:MEDICARE RicheyDOB: Community [place] PART A [facility] [id number] Springs Behavioral [facility] [place] Number: Repository [id number]: [id number] [phone] Date:2017-06-05 2 (HP) 06/05/2017 Secondary Pj M Sol Insurance:Efrain Cruz: Community Number: [id number] Hospital [id number] Repository Date:1240-29-62LU [facility] [address]74[place]VFKWVKD, [place] [address]IV: 06/05/2017 Tertiary NOT RUTH [place] Insurance:SELF PAY [facility] Number: Effective Repository Date:2017-06-05
== END ==
PROVIDERS: PCP Family Medicine; Visit Provider Internal Medicine Pulmonary Disease
DX: R05 Cough (principal); J44.9 Chronic obstructive pulmonary disease, unspecified
CPT/HCPCS: 87070; 87186; 87205

== ENCOUNTER → 2018-11-28 11:44 | Outpatient (CLI) | payer MEDICARE, OTHER, SELFPAY ==
--- NOTE | 2018-11-28 11:49 | RAD_ITS ---
We are attempting to reach an attending provider to discuss findings. An addendum with communication details will be sent when the communication is complete. STUDY: X-RAY CHEST REASON FOR EXAM: Male, 68 years old. Acute bronchitis TECHNIQUE: PA and lateral views of the chest. COMPARISON: November 26, 2017 chest x-ray FINDINGS: study There is persistent opacification of the right chest most likely consistent with prior lobectomy. Is hyperinflation of the left lung. Patchy linear infiltrate in the left lower lobe. Is deviation of the heart towards the right. Normal mediastinum and adolfo. Normal visualized pulmonary arteries. Normal visualized aortic arch and descending thoracic aorta. There are diffuse degenerative changes of the visualized thoracic spine. Normal visualized ribs, clavicles, and shoulders. There is no demonstrated abnormality of the visualized soft tissue structures of the upper abdomen. RAD/Chest PA and Lateral IMPRESSION: Opacification of the right chest compatible with previous lobectomy. Interval increased linear density in the left lower lobe suspicious for developing left lower lobe infiltrate/pneumonia. Electronically Signed: Nicole Fung MD at 14:42 EDT Tel , Service support ,
== END ==
PROVIDERS: Family Provider Family Medicine; PCP Family Medicine; Referring Provider Family Medicine; Visit Provider Family Medicine
DX: J20.9 Acute bronchitis, unspecified (principal)
CPT/HCPCS: 71046

== ENCOUNTER → 2019-01-13 13:19 | Outpatient (CLI) | payer MEDICARE, OTHER, SELFPAY ==
--- NOTE | 2019-01-13 13:24 | RAD_ITS ---
STUDY: X-RAY CHEST REASON FOR EXAM: Male, 68 years old. Chest pain, history of lung cancer TECHNIQUE: PA and lateral views of the chest. COMPARISON: 11/28/2018 FINDINGS: Stable opacification of the right hemithorax from previous pneumonectomy. Left lung shows chronic interstitial changes without a superimposed process. There is no demonstrated pleural abnormality. Normal size heart. Normal mediastinum and adolfo. Normal visualized pulmonary arteries. Normal visualized aortic arch and descending thoracic aorta. Normal visualized thoracic spine. Normal visualized ribs, clavicles, and shoulders. There is no demonstrated abnormality of the visualized soft tissue structures of the upper abdomen. RAD/Chest PA and Lateral IMPRESSION: No interval change Electronically Signed: Td March MD at 9:16 EDT , Service support ,
== END ==
PROVIDERS: Family Provider Family Medicine; PCP Family Medicine; Referring Provider Internal Medicine Pulmonary Disease; Visit Provider Internal Medicine Pulmonary Disease
DX: J44.9 Chronic obstructive pulmonary disease, unspecified (principal); R05 Cough; Z85.118 Personal history of other malignant neoplasm of bronchus and lung
CPT/HCPCS: 71046; 87070; 87077; 87186; 87205

== ENCOUNTER 2019-01-20 17:03 | Inpatient (IN) | payer MEDICARE, OTHER, SELFPAY ==
[2019-01-20 16:53] VITALS: BMI 20.2
[2019-01-20 16:58] VITALS: BP 113/77; PULSE 116; RESP 38; TEMP 36.6; O2SAT 97
--- NOTE | 2019-01-20 17:03 | RAD_ITS ---
STUDY: X-RAY CHEST REASON FOR EXAM: Male, 68 years old. Cough. Fever. Shortness of breath. TECHNIQUE: PA and lateral views of the chest. COMPARISON: Chest, January 13, 2019. CT of the chest, March 21, 2017. FINDINGS: There is opacification of the right hemithorax consistent with pneumonectomy. There is calcifications along the pleural surfaces of the chest with mediastinal shift to the right. The left lung is hyperexpanded. There is no focal mass or infiltrate noted. Normal size heart. Normal mediastinum and adolfo. Normal visualized pulmonary arteries. There is atherosclerotic calcification of the aortic arch with tortuosity. There are diffuse degenerative changes of the visualized thoracic spine. There is degenerative osteoarthritis of the bilateral shoulders. There are surgical clips in the right axilla. There is no demonstrated abnormality of the visualized soft tissue structures of the upper abdomen. RAD/Chest PA and Lateral IMPRESSION: No interval change when compared to the previous chest film. Electronically Signed: Christopher Akhtar DO at 18:52 EST Tel [phone], Service support ,
--- NOTE | 2019-01-20 17:14 | ECHOCS_ITS ---
Reason For Study: DYSPNEA Procedure This was a 2D Doppler, Color Flow transthoracic echocardiogram. The exam was of poor technical quality due to diminished acoustic windows. Contrast injection was performed. The study was technically limited. Exam performed portable in patient room. Left Ventricle Normal LV size. Mild concentric left ventricular hypertrophy. Left ventricular systolic function is hyperdynamic. The estimated ejection fraction is 75 %. Stage 2 diastolic dysfunction. No regional wall motion abnormalities noted. Right Ventricle Normal RV size. Normal systolic function. Atria Normal left atrium. Normal right atrium. Mitral Valve Mitral valve not well visualized. Tricuspid Valve Normal tricuspid valve. Mild to moderate (1-2+) tricuspid valve insufficiency. Pulmonary artery systolic pressure is 40 mmHg. Pulmonic Valve The pulmonic valve is not well visualized. Great Vessels Normal aortic root. The pulmonary artery is normal size. Pericardium/Pleural Small pericardial effusion. There are no echocardiographic indications of cardiac tamponade. Medication Diluted definity 4.0ml given slow IV push to enhance endocardial definition. MMode/2D Measurements & Calculations LVIDd: 2.6 cm IVSd: 1.3 cm LVOT diam: 2.0 cm LVIDs: 1.7 cm LVPWd: 1.3 cm LVOT area: 3.1 cm2 FS: 34.8 % Ao root diam: 3.2 cm LAV(MOD-sp4): 32.5 ml LVAd ap4: 18.9 cm2 EDV(MOD-sp4): 45.4 ml EDV(sp4-el): 47.9 ml LVAs ap4: 10.0 cm2 ESV(MOD-sp4): 14.8 ml ESV(sp4-el): 15.9 ml EF(MOD-sp4): 67.4 % EF(sp4-el): 66.8 % SV(MOD-sp4): 30.6 ml SV(sp4-el): 32.0 ml LA A4 area: 14.9 cm2 Time Measurements MV dec time: 0.17 sec Doppler Measurements & Calculations MV E max estevan: 78.5 cm/sec Lat Peak E' [place]evan: 4.8 cm/sec Med Peak E' [place]evan: 5.5 cm/sec MV A max estevan: 127.7 cm/sec E/E' lat: 16.4 E/E' med: 14.3 MV E/A: 0.62 MV V2 max: 159.1 cm/sec Ao V2 max: 145.7 cm/sec LV V1 max: 112.0 cm/sec MV max P.1 mmHg Ao max P.5 mmHg LV V1 max P.0 mmHg MV V2 mean: 89.5 cm/sec MV mean P.8 mmHg DONG(V,D): 2.4 cm2 MV V2 VTI: 25.7 cm PA V2 max: 98.6 cm/sec TR max estevan: 301.7 cm/sec MV P1/2t-pr_phl: 55.1 msec TR max P.4 mmHg Interpretation Summary Normal LV size. Mild concentric left ventricular hypertrophy. Left ventricular systolic function is hyperdynamic. The estimated ejection fraction is 75 %. Stage 2 diastolic dysfunction. Small pericardial effusion. There are no echocardiographic indications of cardiac tamponade. Contrast injection was performed. Ordering Physician: Connie Omalley Referring Physician: ISRAEL MARINELLI Performed By: Serene Rucker RDCS, RVT
[2019-01-20 17:38] VITALS: O2SAT 95
--- NOTE | 2019-01-20 17:47 | HP.PCM_ITS ---
Problem List (1) Pneumonia Status: Suspected (2) HTN (hypertension) Status: Chronic (3) COPD (chronic obstructive pulmonary disease) Status: Chronic (4) Lung cancer Status: Resolved (5) Hyperlipidemia Status: Chronic (6) h/o smoking Status: Chronic History of Present Illness Date of Admission: 01/20/19 Chief Complaint: Shortness of breath, cough, malaise. The patient is a 68 year old M who presents emergency room with 2-week history of cough, shortness of breath, malaise. Patient follows with Dr. Graham, pulmonary medicine and has been on steroid taper as well as 2 rounds of antibiotics without improvement in symptoms. Recent sputum culture 01/13/2019 grew stenotrophomonas. He reports shortness of breath is worse with exertion. He reports he has been sleeping upright and also notes a one-month history of lower extremity swelling. He reports cough productive of yellow sputum. Fever recently resolved. He has a past medical history of COPD, former tobacco use, lung cancer status post right pneumonectomy, depression, hypertension, hyperl ipidemia. Patient reports poor appetite and recent weight loss. Past Medical History Past Medical History (Chronic Problems): Chronic Problems HTN (hypertension) (Chronic) COPD (chronic obstructive pulmonary disease) (Chronic) Hyperlipidemia (Chronic) h/o smoking (Chronic) Allergies Sulfa (Sulfonamide Antibiotics) Allergy (Verified 07/14/14 21:42) Hives Home Medications: Ambulatory Orders Medication Instructions Recorded Budesonide/Formoterol 160/4.5 2 puff INHALATION BID 06/15/13 [Symbicort 160/4.5 Mcg Inhaler (SP)] Ipratropium/Albuterol Respimat 1 puff INHALATION 4X/DAY PRN PRN 06/15/13 [Combivent Respimat Inhal [place]] Pravastatin [Pravachol] 40 mg PO QHS 06/15/13 Tiotropium [place] [Spiriva 18 MCG] 1 puff INHALATION DAILY 06/15/13 Escitalopram Oxalate 10 mg PO DAILY 01/20/19 Levofloxacin 750 mg PO DAILY 01/20/19 Megestrol Acetate 400 mg PO BID 01/20/19 Prednisone See Taper PO DAILY 01/20/19 Ramipril 10 mg PO QHS 01/20/19 Surgical History: appendectomy, tonsillectomy, - - right pneumonectomy Psychiatric History: No pertinent psych hx Lives: Spouse/ Significant Other Smoking Status: Former smoker Alcohol: None Drugs: None - *Family History Maternal History Items: Heart Disease, - - Ovarian cancer Paternal History Items: Heart Disease Review of Systems Constitutional: Reports: Chills, Fever, Malaise, Weight Change - Weight loss HEENT: Denies: Head Aches, Sinus Congestion, Sinus Drainage Cardiovascular: Reports: Edema - Bilateral lower extremities. Denies: Chest Pain, Light Headedness, Palpitations, Syncope Respiratory: Reports: Cough, Shortness of breath at rest, Shortness of breath upon exertion, Sputum production, Wheezing. Denies: Hemoptysis Gastrointestinal: Denies: Abdominal Pain, Nausea, Vomiting Genitourinary: Denies: Dysuria Musculoskeletal: Denies: Joint Pain, Joint Tenderness Skin: Denies: Rash, Wounds Neurological: Denies: Numbness, Tingling, Focal weakness Psychiatric: Reports: Depression Hematologic/ Lymphatic: Denies: Easy Bruising, Easy Bleeding VTE Information - Inpt Only VTE Present on Admission: No VTE Mechan Device Prophylaxis: None VTE Pharm Prophylaxis ordered?: Yes - Physical Exam Vitals/I&O's: Vital Signs Temp Pulse Resp BP Pulse Ox 97.8 F 116 H 38 H 113/77 97 01/20/19 16:58 01/20/19 16:58 01/20/19 16:58 01/20/19 16:58 01/20/19 16:58 Oxygen Delivery Method Room Air Weight: 125 lb 3.561 oz Body Mass Index (BMI) 20.2 General: Alert, Oriented x3, Cooperative HEENT: Atraumatic, PERRLA, EOMI, Normocephalic Oral: Dry Mucosa Neck: Supple, No JVD, Negative Carotid Bruits Lungs: Diminished, Rhonchi, - - Coarse breath sounds throughout Cardiovascular: Regular rate, Regular Rhythm, Normal S1, Normal S2, No murmurs Abdomen: Bowel Sounds Present, Soft, Non Tender, Non-Distended Extremities: No clubbing, No cyanosis, Edema - 3+ pitting edema bilateral feet to mid hall Skin: No rashes, No breakdown Musculoskeletal: No Tenderness to Palpation of Joints or Extremities, Cachexia Neurological: Cranial nerves II-XII grossly intact, Neuro grossly intact Psych/Mental Status: Normal Affect, Appropriate Current Medications Albuterol Sulfate (Ventolin Aerosols) 2.5 mg INHALATION Q2H PRN PRN PRN Reason: Shortness of Breath/Wheezing Albuterol/Ipratropium (Duoneb) 3 ml INHALATION Q4HWA.RT BROOK Dextrose (D50w Syringe) 0 gm IV X1 PRN; Protocol PRN Reason: Hypoglycemia Enoxaparin Sodium (Lovenox) 40 mg SC DAILY@0600 BROOK Glucagon () 1 mg IM .X1 PRN PRN Reason: Hypoglycemia Guaifenesin (Robitussin) 20 ml PO Q4H PRN PRN PRN Reason: COUGH Sodium Chloride () 250 mls @ 15 mls/hr IV .[id number] PRN PRN Reason: Saline Flush Piperacillin Sod/Tazobactam (Sod 3.375 gm/ Sodium Chloride) 50 mls @ 12.5 mls/hr IV Q8 BROOK Stop: 01/27/19 19:01 Influenza Virus Vaccine Quadrival (Flucelvax /Fluzone [id number]) 0.5 ml IM .ONCE ONE Stop: 01/21/19 10:01 Melatonin (Melatonin) 3 mg PO QHS PRN PRN PRN Reason: INSOMNIA Methylprednisolone (Solu-Medrol) 40 mg IV Q8 BROOK Pravastatin Sodium (Pravachol) 40 mg PO QHS BROOK Ramipril (Altace) 10 mg PO DAILY BROOK Sodium Chloride () 10 - 40 ml IV UD PRN PRN Reason: SALINE FLUSH Throat Lozenges (Cepacol Sore Throat Lozenge) 1 lozenge MUCOUS MEM Q2H PRN PRN PRN Reason: Sore throat or cough Assessment/Plan All Active Problems Lung cancer (Resolved) 1. Acute COPD exacerbation, with stenotrophomonas possible pneumonia-sputum culture 01/13/2018 grew stenotrophomonas. IV Zosyn. Obtain chest x-ray. Albuterol and DuoNeb aerosols. Obtain respiratory panel. IV Solu-Medrol. Consider consulting Dr. Graham if patient fails to improve. 2. New onset significant lower extremity edema (X1 Month)-check BNP. Obtain echo. Snug Alexandr wraps bilateral lower extremities. This may be contributing to failed outpatient treatment of #1. Hold any IV fluids. 3. Lung cancer status post right pneumonectomy (1998)- follows with Dr. Graham. 4. Depression-continue escitalopram regimen. 5. Former tobacco use-quit 20 years ago. Encouraged continued cessation. 6. Hypertension-stable, continue ramipril regimen. 7. Hyperlipidemia-continue statin regimen. 8. Severe protein calorie malnutrition-as evidenced by cachectic appearance, recent weight loss. Nutrition consult. Continue home megestrol regimen. DVT prophylaxis-Lovenox subcu This patient was seen by JAC Polanco under the supervision of Dr. Omalley.
--- NOTE | 2019-01-20 18:07 | CT_ITS ---
STUDY: CT CHEST WITHOUT CONTRAST REASON FOR EXAM: Male, 68 years old. Cough. Congestion. Shortness of breath. Malaise. Lower extremity swelling for one month. History of lung cancer with right pneumonectomy RADIATION DOSAGE (If Supplied By Facility): CTDIvol = ( 8.27 ) mGy, DLP = ( 299.76 ) mGycm TECHNIQUE: Transaxial imaging was performed without the administration of intravenous contrast material. Multiplanar coronal and sagittal images were reformatted. Individualized dose optimization techniques were used for this CT. COMPARISON: Chest, January 20, 2019. CT of the chest, August 19, 2017 FINDINGS: There is evidence of right pneumonectomy. There is a loculated fluid collection in the right hemithorax with calcified pleura. There is no mass. The left lung is hyperexpanded and it with mild emphysematous change. There is minimal dependent changes in the posterior costophrenic angle without mass or infiltrate. There is mediastinal shift to the left. The heart appears normal in size. Normal pericardium. There are calcifications of the coronary arteries. Normal mediastinum. Normal hilar regions. Normal unenhanced pulmonary arteries. There is mild atherosclerotic tortuosity of the thoracic aorta without aneurysm. There are multi-level degenerative changes of the thoracic spine. Again seen are mild compression deformities of superior endplate T3 and T6. There is a new compression deformities superior endplate of T8 on previously noted. This may represent an acute injury. There is no demonstrated abnormality of the visualized upper abdomen. CT/Chest without Contrast IMPRESSION: 1. No evidence of recurrence or metastatic disease. 2. Chronic scarring versus atelectasis at the left lung base. 3. Question acute compression deformity superior endplate of T8. 4. No other major interval change. Electronically Signed: Christopher Akhtar DO at 19:49 EST Tel [phone], Service support ,
[2019-01-20 18:28] LABS: Absolute Lymphocyte Count 0.51 X10^3/uL (0.83-4.51); Absolute Neutrophil Count 12.5 X10^3/uL (2.0-7.7); Basophil# 0.13 X10^3/uL; Basophil% 0.9 % (0-1); Hematocrit 44.4 % (40-54); Hemoglobin 14.2 g/dL (13.0-16.5); Lymphocyte # 0.51 X10^3/ul (4.0); Lymphocyte % 3.4 % (19-41); Mean Corpuscular Hgb 31.1 pg (27.0-32.0); Mean Corpuscular Volume 97.4 fL (80-94); Monocyte# 1.22 X10^3/uL; Monocyte% 8.2 % (0-10); NRBC Flagged by Analyzer 0 % (0-5); Neutrophil % 83.7 % (47-70); POSITIVE DIFFERENTIAL YES; Platelet Count 484 K/mm3 (150-450); RBC Distribution Width SD 50.3 fl (35.1-43.9); Red Blood Count 4.56 M/mm3 (4.6-6.2); White Blood Count 14.9 K/mm3 (4.4-11.0)
[2019-01-20 18:58] LABS: Differential Indicated SCAN CRITERIA MET
[2019-01-20 18:59] LABS: Anisocytosis RARE; Macrocytosis RARE; Platelet Estimate ADEQUATE (ADEQ); Red Cell Morphology N CHROM NORMAL (NORM C&C)
[2019-01-20] MEDS: Ipratropium/Albuterol Sulfate 3 ML AMPUL.NEB INHALATION ×2 (19:07→23:20)
[2019-01-20] MEDS: 0.9% Saline Lock 10 ML Syringe IV (19:08)
[2019-01-20 19:12] VITALS: PULSE 91; RESP 18
[2019-01-20 19:24] LABS: Anion Gap 7 (5-15); BNP,B-Type NATRIURETIC PEPTIDE 109.3 pg/mL (0-100); BUN 22 mg/dL (7-18); BUN/Creat Ratio 23.4 RATIO (10-20); Calcium,Total 8.9 mg/dL (8.5-10.1); Chloride 105 mmol/L (98-107); Creatinine, Serum 0.94 mg/dL (0.70-1.30); EST Glomerular Filtration Rate 85 mL/min (>60); Est Glom Filt Rate - Afr Amer 102 mL/min (>60); Estimated Creatinine Clearance 60.43 ml/min; Glucose 104 mg/dL (74-106); Magnesium 2.2 mg/dL (1.6-2.6); Potassium 4.4 mmol/L (3.5-5.1); Sodium Level 139 mmol/L (136-145)
[2019-01-20 22:20] VITALS: BP 129/92; PULSE 87; RESP 20; TEMP 36.7; O2SAT 98
[2019-01-20] MEDS: MELATONIN 3 MG TABLET PO (22:24)
[2019-01-20] MEDS: Pravastatin 40 MG Tablet PO (22:24)
[2019-01-20] MEDS: Ramipril 10 MG Capsule PO (22:24)
[2019-01-20 23:20] VITALS: PULSE 90; RESP 24
[2019-01-21] VITALS (11 sets, daily range): BP systolic 103–111; BP diastolic 59–89; PULSE 84–108; RESP 18–26; TEMP 36.6–37.2; O2SAT 95–98
[2019-01-21] MEDS: Ipratropium/Albuterol Sulfate 3 ML AMPUL.NEB INHALATION ×5 (02:41→19:40)
[2019-01-21] MEDS: Enoxaparin 40 MG/0.4 ML Syringe SC (05:27)
[2019-01-21 07:19] LABS: Absolute Lymphocyte Count 0.24 X10^3/uL (0.83-4.51); Basophil# 0.04 X10^3/uL; Basophil% 0.4 % (0-1); Hematocrit 38.7 % (40-54); Hemoglobin 12.4 g/dL (13.0-16.5); Lymphocyte # 0.24 X10^3/ul (4.0); Lymphocyte % 2.2 % (19-41); Mean Corpuscular Hgb 30.8 pg (27.0-32.0); Mean Corpuscular Volume 96.3 fL (80-94); Mean Platelet Vol. 10.4 fl (6.2-12.0); Monocyte# 0.45 X10^3/uL; Monocyte% 4.1 % (0-10); NRBC Flagged by Analyzer 0 % (0-5); Neutrophil % 90.7 % (47-70); POSITIVE DIFFERENTIAL YES; Platelet Count 413 K/mm3 (150-450); RBC Distribution Width SD 49.7 fl (35.1-43.9); Red Blood Count 4.02 M/mm3 (4.6-6.2)
[2019-01-21 07:24] LABS: Differential Indicated SCAN CRITERIA MET
[2019-01-21 07:37] LABS: Anion Gap 10 (5-15); BUN 20 mg/dL (7-18); BUN/Creat Ratio 22.2 RATIO (10-20); Calcium,Total 8.4 mg/dL (8.5-10.1); Chloride 104 mmol/L (98-107); EST Glomerular Filtration Rate 89 mL/min (>60); Est Glom Filt Rate - Afr Amer 108 mL/min (>60); Estimated Creatinine Clearance 63.11 ml/min; Glucose 154 mg/dL (74-106); Sodium Level 140 mmol/L (136-145)
[2019-01-21 07:52] LABS: Hypersegmented Neutrophils 1+
[2019-01-21 07:55] LABS: T4 Free Direct 0.88 ng/dL (0.76-1.46)
--- NOTE | 2019-01-21 10:52 | CM.UR ---
RN CM Assessment Introduced role of RN CM to patient. Patient is alert and able to participate in RN CM Assessment. Care providers, pharmacy, and demographics verified. No family at bedside. Presentation: Sent for direct admission from Dr. Graham' office for failed OP treatment. Admit Dx: COPD exacerbation Re-Admit: No Barriers/Issues: none noted PCP: Can't remember new physician's name. [facility] Dr. Trujillo retired about a month ago. Specialists: Dr. Graham Preferred Pharmacy: [facility] Insurance: [facility] supplement Rx Benefit: Yes LNOK: Matilda LW/HPOA: None, declined info Living Arrangements: Lives in 2 story home with first floor set up as he can no longer make it up the steps. ADL?s: Needs assistance from with most ADLs d/t sob and he gets worn out. Transportation: drives as needed. He does not trust himself to drive. DME: Cane, shower chair, grab bars and nebulizer. Does not have o2. has never needed it as his pulse ox always remains good. HHC: has had a couple times as he got IVAB at home but he can't remember which ones. thinks just from hospital. SNF: None Goal: To return home. Denies any needs. DC PLAN: Home, no needs. Encouraged him to let someone know if he does think of anything. Verb understanding. Catalina Escobar, LAURA, [facility].
[2019-01-21] MEDS: 0.9% Saline Lock 10 ML Syringe IV ×2 (10:56→14:50)
--- NOTE | 2019-01-21 12:38 | PN_ITS ---
<Alisha Malone - Last Filed: 01/21/19 13:32> Subjective: Patient seen and examined. Reports of breathing and cough improved earlier today, now having harsh cough with difficulty bringing up sputum. Reports shortness of breath has overall improved. Denies fever, chills. - Physical Exam Vitals/I&O's: Vital Signs Temp Pulse Resp BP Pulse Ox 98.9 F 95 18 103/72 98 01/21/19 08:58 01/21/19 11:22 01/21/19 11:22 01/21/19 08:58 01/21/19 11:22 Oxygen Delivery Method Room Air Weight: 125 lb 3.561 oz Body Mass Index (BMI) 20.2 Intake and Output for Last 24 Hours 01/19/19 01/20/19 01/21/19 23:59 23:59 23:59 Intake Total 900 / 900 Output Total 200 / 200 Balance 700 / 700 General: Alert, Oriented x3, Cooperative HEENT: Atraumatic, PERRLA, EOMI, Normocephalic Neck: Supple, No JVD, Negative Carotid Bruits Lungs: Diminished, Rhonchi, - - Coarse breath sounds throughout Cardiovascular: Regular rate, Regular Rhythm, Normal S1, Normal S2, No murmurs Abdomen: Bowel Sounds Present, Soft, Non Tender, Non-Distended Extremities: No clubbing, No cyanosis, Capillary Refill Less than 3 Seconds, Edema - Pitting bilateral lower extremity edema, Alexandr wraps in place Skin: No rashes, No breakdown Musculoskeletal: No Tenderness to Palpation of Joints or Extremities Neurological: Cranial nerves II-XII grossly intact, Neuro grossly intact Psych/Mental Status: Normal Affect, Appropriate Microbiology Past 72 Hours 01/20/19 17:36 Mucosa - Nasopharyngeal Respiratory Panel (PCR) - Final 01/21/19 03:30 Urine, Clean Catch Legionella Antigen - Final 01/21/19 03:30 Urine, Clean Catch Streptococcus pneumoniae Antigen (M - Final Laboratory Results 01/20/19 18:18: WBC 14.9 H, RBC 4.56 L, Hgb 14.2, Hct 44.4, MCV 97.4 H, MCH 31.1, MCHC 32.0, RDW Std Deviation 50.3 H, RDW Coeff of Kelly 14.0, Plt Count 484 H, MPV 10.0, Immature Gran % (Auto) 3.800 H, Neut % (Auto) 83.7 H, Lymph % (Auto) 3.4 L, [place] % (Auto) 8.2, Eos % (Auto) 0.0, Baso % (Auto) 0.9, Absolute Neuts (auto) 12.5 H, Absolute Lymphs (auto) 0.51 L, Nucleated RBC % 0, Differential Comment SEE COMMENT, Platelet Estimate ADEQUATE, RBC Morphology N CHROM, Anisocytosis RARE, Macrocytosis RARE 01/20/19 18:18: Sodium 139, Potassium 4.4, Chloride 105, Carbon Dioxide 27.0, Anion Gap 7, BUN 22 H, Creatinine 0.94, Estim Creat Clear Calc 60.43, Est GFR (MDRD) Af Amer 102, Est GFR (MDRD) Non-Af 85, BUN/Creatinine Ratio 23.4 H, Glucose 104, Calcium 8.9, Magnesium 2.2, TSH 10.40 H 01/20/19 18:18: B-Natriuretic Peptide 109.3 H 01/21/19 06:30: WBC 11.0, RBC 4.02 L, Hgb 12.4 L, Hct 38.7 L, MCV 96.3 H, MCH 30.8, MCHC 32.0, RDW Std Deviation 49.7 H, RDW Coeff of Kelly 14.0, Plt Count 413, MPV 10.4, Immature Gran % (Auto) 2.600 H, Neut % (Auto) 90.7 H, Lymph % (Auto) 2.2 L, [place] % (Auto) 4.1, Eos % (Auto) 0.0, Baso % (Auto) 0.4, Absolute Neuts (auto) 10.0 H, Absolute Lymphs (auto) 0.24 L, Nucleated RBC % 0, Diff Path Review May foll, Hypersegmented Neuts 1+ H 01/21/19 06:30: Sodium 140, Potassium 4.0, Chloride 104, Carbon Dioxide 26.0, Anion Gap 10, BUN 20 H, Creatinine 0.90, Estim Creat Clear Calc 63.11, Est GFR (MDRD) Af Amer 108, Est GFR (MDRD) Non-Af 89, BUN/Creatinine Ratio 22.2 H, Glucose 154 H, Calcium 8.4 L 01/21/19 06:30: Free T4 0.88, Free T3 pg/dL 1.0 L Current Medications Albuterol Sulfate (Ventolin Aerosols) 2.5 mg INHALATION Q2H PRN PRN PRN Reason: Shortness of Breath/Wheezing Albuterol/Ipratropium (Duoneb) 3 ml INHALATION Q4HWA.RT [facility] Last Admin: 01/21/19 11:22 Dose: 3 ml Documented by: Dextrose (D50w Syringe) 0 gm IV X1 PRN; Protocol PRN Reason: Hypoglycemia Enoxaparin Sodium (Lovenox) 40 mg SC DAILY@0600 [facility] Last Admin: 01/21/19 05:27 Dose: 40 mg Documented by: Glucagon () 1 mg IM .X1 PRN PRN Reason: Hypoglycemia Guaifenesin (Robitussin) 20 ml PO Q4H PRN PRN PRN Reason: COUGH Sodium Chloride () 250 mls @ 15 mls/hr IV .[id number] PRN PRN Reason: Saline Flush Last Admin: 01/20/19 19:13 Dose: 15 mls/hr Documented by: Piperacillin Sod/Tazobactam (Sod 3.375 gm/ Sodium Chloride) 50 mls @ 12.5 mls/hr IV Q8 [facility] Stop: 01/27/19 19:01 Last Infusion: 01/21/19 09:27 Dose: Infused Documented by: Melatonin (Melatonin) 3 mg PO QHS PRN PRN PRN Reason: INSOMNIA Last Admin: 01/20/19 22:24 Dose: 3 mg Documented by: Methylprednisolone (Solu-Medrol) 40 mg IV Q8 [facility] Last Admin: 01/21/19 05:28 Dose: 40 mg Documented by: Nutritional Formula (Lactose Free) (Ensure Enlive) 120 ml PO 4X/DAY [facility] Last Admin: 01/21/19 11:00 Dose: 120 ml Documented by: Pravastatin Sodium (Pravachol) 40 mg PO QHS [facility] Last Admin: 01/20/19 22:24 Dose: 40 mg Documented by: Ramipril (Altace) 10 mg PO QHS [facility] Last Admin: 01/20/19 22:24 Dose: 10 mg Documented by: Sodium Chloride () 10 - 40 ml IV UD PRN PRN Reason: SALINE FLUSH Last Admin: 01/21/19 10:56 Dose: 10 ml Documented by: Throat Lozenges (Cepacol Sore Throat Lozenge) 1 lozenge MUCOUS MEM Q2H PRN PRN PRN Reason: Sore throat or cough Medical Necessity - Tobacco Use Smoking Status: Former smoker Assessment/Plan All Active Problems Lung cancer (Resolved) 1. Acute on chronic COPD with exacerbation, with stenotrophomonas possible pneumonia-sputum culture 01/13/2019 grew stenotrophomonas. IV Zosn. Chest x-ray stable from prior image. CT of chest shows no evidence of recurrence of metastatic disease, chronic scarring versus atelectasis of the left lung base, no interval change. Albuterol and DuoNeb aerosols. Respiratory panel negative. IV Solu-Medrol. Mucinex 1200 mg twice daily. Consider consulting Dr. Graham if patient fails to improve. 2. New onset significant lower extremity edema (X1 Month)-BNP unremarkable. Echocardiogram demonstrates an EF of 75%, stage II diastolic dysfunction, small pericardial effusion. Snug Alexandr wraps bilateral lower extremities. Feel this is mostly dependent edema, improved with Alexandr wraps. Will give one-time dose of Lasix. 3. Abnormal TSH-TSH 10.4. Free T4 0.88. Free T3 1.0. Will begin Synthroid 50 mcg daily. Thyroid function may be abnormal due to acute illness, recommend repeat thyroid studies in 4 to 6 weeks as outpatient. 4. Lung cancer status post right pneumonectomy (1998)- follows with Dr. Graham. 5. Depression-continue escitalopram regimen. 6. Former tobacco use-quit 20 years ago. Encouraged continued cessation. 7. Hypertension-stable, continue ramipril regimen. 8. Hyperlipidemia-continue statin regimen. 9. Severe protein calorie malnutrition-as evidenced by cachectic appearance, recent weight loss. Nutrition consult. Continue home megestrol regimen. DVT prophylaxis-Lovenox subcu This patient was seen by JAC Polanco under the supervision of Dr. Vega. <Marie Vega - Last Filed: 01/21/19 14:51> - Physical Exam Vitals/I&O's: Vital Signs Temp Pulse Resp BP Pulse Ox 98.4 F 99 20 H 111/73 95 01/21/19 14:42 01/21/19 14:42 01/21/19 14:42 01/21/19 14:42 01/21/19 14:42 Oxygen Delivery Method Room Air Weight: 125 lb 3.561 oz Body Mass Index (BMI) 20.2 Intake and Output for Last 24 Hours 01/19/19 01/20/19 01/21/19 23:59 23:59 23:59 Intake Total 1150 / 1150 Output Total 200 / 200 Balance 950 / 950 Microbiology Past 72 Hours 01/20/19 17:36 Mucosa - Nasopharyngeal Respiratory Panel (PCR) - Final 01/21/19 03:30 Urine, Clean Catch Legionella Antigen - Final 01/21/19 03:30 Urine, Clean Catch Streptococcus pneumoniae Antigen (M - Final Laboratory Results 01/20/19 18:18: WBC 14.9 H, RBC 4.56 L, Hgb 14.2, Hct 44.4, MCV 97.4 H, MCH 31.1, MCHC 32.0, RDW Std Deviation 50.3 H, RDW Coeff of Kelly 14.0, Plt Count 484 H, MPV 10.0, Immature Gran % (Auto) 3.800 H, Neut % (Auto) 83.7 H, Lymph % (Auto) 3.4 L, [place] % (Auto) 8.2, Eos % (Auto) 0.0, Baso % (Auto) 0.9, Absolute Neuts (auto) 12.5 H, Absolute Lymphs (auto) 0.51 L, Nucleated RBC % 0, Differential Comment SEE COMMENT, Platelet Estimate ADEQUATE, RBC Morphology N CHROM, Anisocytosis RARE, Macrocytosis RARE 01/20/19 18:18: Sodium 139, Potassium 4.4, Chloride 105, Carbon Dioxide 27.0, Anion Gap 7, BUN 22 H, Creatinine 0.94, Estim Creat Clear Calc 60.43, Est GFR (MDRD) Af Amer 102, Est GFR (MDRD) Non-Af 85, BUN/Creatinine Ratio 23.4 H, Glucose 104, Calcium 8.9, Magnesium 2.2, TSH 10.40 H 01/20/19 18:18: B-Natriuretic Peptide 109.3 H 01/21/19 06:30: WBC 11.0, RBC 4.02 L, Hgb 12.4 L, Hct 38.7 L, MCV 96.3 H, MCH 30.8, MCHC 32.0, RDW Std Deviation 49.7 H, RDW Coeff of Kelly 14.0, Plt Count 413, MPV 10.4, Immature Gran % (Auto) 2.600 H, Neut % (Auto) 90.7 H, Lymph % (Auto) 2.2 L, [place] % (Auto) 4.1, Eos % (Auto) 0.0, Baso % (Auto) 0.4, Absolute Neuts (auto) 10.0 H, Absolute Lymphs (auto) 0.24 L, Nucleated RBC % 0, Diff Path Review May foll, Hypersegmented Neuts 1+ H 01/21/19 06:30: Sodium 140, Potassium 4.0, Chloride 104, Carbon Dioxide 26.0, Anion Gap 10, BUN 20 H, Creatinine 0.90, Estim Creat Clear Calc 63.11, Est GFR (MDRD) Af Amer 108, Est GFR (MDRD) Non-Af 89, BUN/Creatinine Ratio 22.2 H, Glucose 154 H, Calcium 8.4 L 01/21/19 06:30: Free T4 0.88, Free T3 pg/dL 1.0 L Current Medications Albuterol Sulfate (Ventolin Aerosols) 2.5 mg INHALATION Q2H PRN PRN PRN Reason: Shortness of Breath/Wheezing Albuterol/Ipratropium (Duoneb) 3 ml INHALATION Q4HWA.RT [facility] Last Admin: 01/21/19 11:22 Dose: 3 ml Documented by: Dextrose (D50w Syringe) 0 gm IV X1 PRN; Protocol PRN Reason: Hypoglycemia Enoxaparin Sodium (Lovenox) 40 mg SC DAILY@0600 [facility] Last Admin: 01/21/19 05:27 Dose: 40 mg Documented by: Glucagon () 1 mg IM .X1 PRN PRN Reason: Hypoglycemia Guaifenesin (Mucinex) 1,200 mg PO BID [facility] Last Admin: 01/21/19 13:16 Dose: 1,200 mg Documented by: Sodium Chloride () 250 mls @ 15 mls/hr IV .[id number] PRN PRN Reason: Saline Flush Last Admin: 01/21/19 13:16 Dose: 15 mls/hr Documented by: Piperacillin Sod/Tazobactam (Sod 3.375 gm/ Sodium Chloride) 50 mls @ 12.5 mls/hr IV Q8 [facility] Stop: 01/27/19 19:01 Last Admin: 01/21/19 14:41 Dose: 12.5 mls/hr Documented by: Levothyroxine Sodium (Synthroid) 50 mcg PO DAILY@0600 [facility] Melatonin (Melatonin) 3 mg PO QHS PRN PRN PRN Reason: INSOMNIA Last Admin: 01/20/19 22:24 Dose: 3 mg Documented by: Methylprednisolone (Solu-Medrol) 40 mg IV Q8 [facility] Last Admin: 01/21/19 05:28 Dose: 40 mg Documented by: Nutritional Formula (Lactose Free) (Ensure Enlive) 120 ml PO 4X/DAY [facility] Last Admin: 01/21/19 14:41 Dose: 120 ml Documented by: Pravastatin Sodium (Pravachol) 40 mg PO QHS [facility] Last Admin: 01/20/19 22:24 Dose: 40 mg Documented by: Ramipril (Altace) 10 mg PO QHS [facility] Last Admin: 01/20/19 22:24 Dose: 10 mg Documented by: Sodium Chloride () 10 - 40 ml IV UD PRN PRN Reason: SALINE FLUSH Last Admin: 01/21/19 10:56 Dose: 10 ml Documented by: Throat Lozenges (Cepacol Sore Throat Lozenge) 1 lozenge MUCOUS MEM Q2H PRN PRN PRN Reason: Sore throat or cough Assessment/Plan Patient seen by JAC Polanco under my supervision. Patient was admitted with a complaint of shortness of breath which have been going on for about 2 weeks and gradually worsening. He had been following up with his foreign food specialty cook Dr. Graham on outpatient basis and had been on steroid taper and 2 rounds of antibiotics with no improvement in symptoms. Sputum culture on 01/13/2019 revealed stenotrophomonas. Fever had resolved and he had a cough productive of yellow sputum. He was admitted to manage for acute on chronic COPD exacerbation and community-acquired pneumonia due to stenotrophomonas. Currently on IV Zosyn. Patient seen and examined. He feels much better today. Shortness of breath is improved markedly. He denies any headache, blurred vision, chest pain, diarrhea vomiting. Review of systems otherwise negative. Labs and vitals reviewed. o/e: Vital Signs Height 5 ft 6 in Weight: 125 lb 3.561 oz Weight in Pounds 125.2 lbs Pulse Ox 95 Temperature 98.4 F Pulse Rate 99 Respiratory Rate 20 Blood Pressure 111/73 Blood Pressure Position Semi-Fowlers General: Alert, Oriented x3, Cooperative HEENT: Atraumatic, PERRLA, EOMI, Normocephalic Neck: Supple, No JVD, Negative Carotid Bruits Lungs: decreased breath sounds in right mid and lowr lung de jesus (has right pneumonectomy) Cardiovascular: Regular rate, Regular Rhythm, Normal S1, Normal S2, No murmurs Abdomen: Bowel Sounds Present, Soft, Non Tender, Non-Distended Extremities: No clubbing, No cyanosis, Capillary Refill Less than 3 Seconds, Edema -mild bilateral LE pitting edema, ALEXANDR wraps Skin: No rashes, No breakdown Musculoskeletal: No Tenderness to Palpation of Joints or Extremities Neurological: Cranial nerves II-XII grossly intact, Neuro grossly intact Psych/Mental Status: Normal Affect, Appropriate Plan is to continue IV Zosyn for community-acquired pneumonia due to stenotrophomonas. BNP was unremarkable and echo done showed EF of 75% with stage II diastolic dysfunction and small pericardial effusion. Continue using Alexandr wraps for lower extremity edema which is likely dependent. TSH was 10.4 but free T4 was 0.88 and free T3 was 1. Low T3 is indicated above hypothyroidism though her free T4 is within normal limits. Though in light of patient's markedly elevated TSH, will begin Synthroid 50 mcg daily. To reassess thyroid studies in 4 to 6 weeks on outpatient basis. Continue using breathing treatments and titrate oxygen to maintain saturation above 92%. Rest as per JAC Polanco's notes which I reviewed and endorsed. Code Visit Inpatient E&M: 85465 Subs Hosp L2
[2019-01-21] MEDS: guaiFENesin 1,200 MG Tablet 1200 MG PO ×2 (13:16→21:02)
[2019-01-21] MEDS: Furosemide 40 MG/4 ML Vial IV (14:50)
[2019-01-21] MEDS: Ramipril 10 MG Capsule PO (21:02)
[2019-01-21] MEDS: Pravastatin 40 MG Tablet PO (21:02)
[2019-01-22 02:14] VITALS: BP 127/88; PULSE 68; RESP 18; TEMP 36.9; O2SAT 95
[2019-01-22] MEDS: Enoxaparin 40 MG/0.4 ML Syringe SC (05:53)
[2019-01-22] MEDS: Levothyroxine 50 MCG Tablet PO (05:54)
[2019-01-22 06:12] LABS: Hematocrit 39.4 % (40-54); Mean Corpuscular Hgb 31.7 pg (27.0-32.0); Mean Corpuscular Volume 96.1 fL (80-94); Mean Platelet Vol. 10.2 fl (6.2-12.0); Platelet Count 386 K/mm3 (150-450); RBC Distribution Width CV 14.3 % (11.6-14.6); RBC Distribution Width SD 50.4 fl (35.1-43.9); White Blood Count 13.3 K/mm3 (4.4-11.0)
[2019-01-22 06:30] LABS: Anion Gap 7 (5-15); BUN 29 mg/dL (7-18); Calcium,Total 9.2 mg/dL (8.5-10.1); Chloride 103 mmol/L (98-107); EST Glomerular Filtration Rate 79 mL/min (>60); Est Glom Filt Rate - Afr Amer 95 mL/min (>60); Glucose 124 mg/dL (74-106); Potassium 4.2 mmol/L (3.5-5.1); Sodium Level 139 mmol/L (136-145)
[2019-01-22 07:26] VITALS: PULSE 84; RESP 18; O2SAT 96
[2019-01-22] MEDS: Ipratropium/Albuterol Sulfate 3 ML AMPUL.NEB INHALATION ×2 (07:26→11:12)
[2019-01-22 10:00] VITALS: BP 115/75; PULSE 98; RESP 18; TEMP 36.7; O2SAT 99
--- NOTE | 2019-01-22 10:44 | DCINST_ITS ---
You will use the following diet at home:: No restrictions Discharge Activity: Return to Normal Activity Call your doctor if you observe: Fever of 101 or Higher, Shortness of breath, Dizziness, Fainting spells, Chest pain Allergies/Adverse Reactions: Allergies Sulfa (Sulfonamide Antibiotics) Allergy (Verified 07/14/14 21:42) Hives Medications to take at Discharge Budesonide/Formoterol 160/4.5 [Symbicort 160/4.5 Mcg Inhaler (SP)] 2 puff INHALATION BID 06/15/13 Ipratropium/Albuterol Respimat [Combivent Respimat Inhal [place]] 1 puff INHALATION 4X/DAY PRN PRN 06/15/13 Pravastatin [Pravachol] 40 mg PO QHS 06/15/13 Tiotropium [place] [Spiriva 18 MCG] 1 puff INHALATION DAILY 06/15/13 Escitalopram Oxalate 10 mg PO DAILY 01/20/19 Megestrol Acetate 400 mg PO BID 01/20/19 Ramipril 10 mg PO QHS 01/20/19 Guaifenesin [Mucinex] 1,200 mg PO BID #60 tab 01/22/19 Levofloxacin 750 mg PO DAILY #5 tab 01/22/19 Levothyroxine [Synthroid] 50 mcg PO DAILY@0600 #30 tab 01/22/19 Prednisone See Taper PO DAILY #30 tab 01/22/19 The following prescriptions were given: Levofloxacin 750 mg PO DAILY #5 tab Transmission Status: Pending to [facility] Guaifenesin [Mucinex] 1,200 mg PO BID #60 tab Transmission Status: Pending to [facility] Prednisone See Taper PO DAILY #30 tab Transmission Status: Pending to [facility] Levothyroxine [Synthroid] 50 mcg PO DAILY@0600 #30 tab Transmission Status: Pending to [facility] Primary Care Physician: Chidi Trujillo MD [Primary Care Provider] - Please follow up with your Primary Care Physician in: 1 week Test Results: Test results from this visit will be discussed in further detail at your follow- up appointment, if applicable. Please Follow Up With: Jimbo Graham MD When: 3-5 days Proposed Discharge Date: 01/22/19
--- NOTE | 2019-01-22 10:45 | DS.PCM_ITS ---
Discharge Date and Diagnosis Date of Admission: 01/20/19 Date of Discharge: 01/22/19 - Primary Discharge Diagnosis 1. Acute on chronic COPD with exacerbation, with stenotrophomonas, complicated by underlying bronchiectasis and history of right pneumonectomy 2. Dependent edema 3. Abnormal TSH 4. Lung cancer status post right pneumonectomy (1998) 5. Depression 6. Former tobacco use 7. Hypertension 8. Hyperlipidemia - Secondary Discharge Diagnosis Chronic Problems HTN (hypertension) (Chronic) COPD (chronic obstructive pulmonary disease) (Chronic) Hyperlipidemia (Chronic) h/o smoking (Chronic) Hospital Course and Treatment Imaging Results: Diagnostic Data Chest X-Ray 01/20/19 17:03 IMPRESSION: No interval change when compared to the previous chest film. Electronically Signed: Christopher Akhtar DO at 18:52 EST Tel [phone], Service support , Chest CT 01/20/19 18:07 IMPRESSION: 1. No evidence of recurrence or metastatic disease. 2. Chronic scarring versus atelectasis at the left lung base. 3. Question acute compression deformity superior endplate of T8. 4. No other major interval change. Electronically Signed: Christopher Akhtar DO at 19:49 EST Tel [phone], Service support , Operations: None Procedures: 2-D Echocardiogram Summary of Care Provided: The patient is a 68 year old M admitted 01/20/2019 due to shortness of breath, cough and malaise. 1. Acute on chronic COPD with exacerbation, with stenotrophomonas, complicated by underlying bronchiectasis -sputum culture 01/13/2019 grew stenotrophomonas. IV Zosn during admission. Chest x-ray stable from prior image. CT of chest shows no evidence of recurrence of metastatic disease, chronic scarring versus atelectasis of the left lung base, no interval change. Pneumonia ruled out. Respiratory panel negative. Patient did not require supplemental oxygen during admission. Discharged on Levaquin 750 mg daily x5 days. Prednisone taper at discharge. Follow-up with Dr. Graham in 3 to 5 days. Follow-up with primary care physician in 1 week. 2. Dependent edema-BNP unremarkable. Echocardiogram demonstrates an EF of 75%, stage II diastolic dysfunction, small pericardial effusion. Snug Alexandr wraps bi lateral lower extremities. Lower extremity swelling significantly improved with Alexandr wraps. Recommend continued use at home. 3. Abnormal TSH-TSH 10.4. Free T4 0.88. Free T3 1.0. Initiated on Synthroid 50 mcg daily. Thyroid function may be abnormal due to acute illness, recommend repeat thyroid studies in 4 to 6 weeks as outpatient. 4. Lung cancer status post right pneumonectomy (1998)- follows with Dr. Graham. 5. Depression-continue escitalopram regimen. 6. Former tobacco use-quit 20 years ago. Encouraged continued cessation. 7. Hypertension-stable, continue ramipril regimen. 8. Hyperlipidemia-continue statin regimen. 9. Severe protein calorie malnutrition-as evidenced by cachectic appearance, recent weight loss. Continue home megestrol regimen. General: Alert, Oriented x3, Cooperative HEENT: Atraumatic, PERRLA, EOMI, Normocephalic Neck: Supple, No JVD, Negative Carotid Bruits Lungs: Diminished, occasional rhonchi, no wheezing Cardiovascular: Regular rate, Regular Rhythm, Normal S1, Normal S2, No murmurs Abdomen: Bowel Sounds Present, Soft, Non Tender, Non-Distended Extremities: No clubbing, No cyanosis, Capillary Refill Less than 3 Seconds, Edema - Pitting bilateral lower extremity edema, Alexandr wraps in place Skin: No rashes, No breakdown Musculoskeletal: No Tenderness to Palpation of Joints or Extremities Neurological: Cranial nerves II-XII grossly intact, Neuro grossly intact Psych/Mental Status: Normal Affect, Appropriate Patient seen and examined prior to discharge. Physical assessment as noted above. Patient is stable for discharge with follow up recommendations as noted above. This patient was seen by JAC Polanco under the supervision of Dr. Burns. - Physical Exam Vitals/I&O's: Vital Signs Temp Pulse Resp BP Pulse Ox 98.4 F 84 18 127/88 H 96 01/22/19 02:14 01/22/19 07:26 01/22/19 07:26 01/22/19 02:14 01/22/19 07:26 Oxygen Delivery Method Room Air Weight: 125 lb 3.561 oz Body Mass Index (BMI) 20.2 Intake and Output for Last 24 Hours 01/20/19 01/21/19 01/22/19 23:59 23:59 23:59 Intake Total 2116.5 / 2416.5 473 / 473 Output Total 1425 / 1625 350 / 350 Balance 691.5 / 791.5 123 / 123 Microbiology Past 72 Hours 01/20/19 17:36 Mucosa - Nasopharyngeal Respiratory Panel (PCR) - Final 01/21/19 03:30 Urine, Clean Catch Legionella Antigen - Final 01/21/19 03:30 Urine, Clean Catch Streptococcus pneumoniae Antigen (M - Final Laboratory Results 01/22/19 05:35: WBC 13.3 H, RBC 4.10 L, Hgb 13.0, Hct 39.4 L, MCV 96.1 H, MCH 31.7, MCHC 33.0, RDW Std Deviation 50.4 H, RDW Coeff of Kelly 14.3, Plt Count 386, MPV 10.2 01/22/19 05:35: Sodium 139, Potassium 4.2, Chloride 103, Carbon Dioxide 29.0, Anion Gap 7, BUN 29 H, Creatinine 1.00, Estim Creat Clear Calc 56.80, Est GFR (MDRD) Af Amer 95, Est GFR (MDRD) Non-Af 79, BUN/Creatinine Ratio 29.0 H, Glucose 124 H, Calcium 9.2 Current Medications Albuterol Sulfate (Ventolin Aerosols) 2.5 mg INHALATION Q2H PRN PRN PRN Reason: Shortness of Breath/Wheezing Albuterol/Ipratropium (Duoneb) 3 ml INHALATION Q4HWA.RT [facility] Last Admin: 01/22/19 07:26 Dose: 3 ml Documented by: Dextrose (D50w Syringe) 0 gm IV X1 PRN; Protocol PRN Reason: Hypoglycemia Enoxaparin Sodium (Lovenox) 40 mg SC DAILY@0600 [facility] Last Admin: 01/22/19 05:53 Dose: 40 mg Documented by: Glucagon () 1 mg IM .X1 PRN PRN Reason: Hypoglycemia Guaifenesin (Mucinex) 1,200 mg PO BID [facility] Last Admin: 01/21/19 21:02 Dose: 1,200 mg Documented by: Sodium Chloride () 250 mls @ 15 mls/hr IV .[id number] PRN PRN Reason: Saline Flush Last Infusion: 01/22/19 05:54 Dose: 0 mls/hr Documented by: Levothyroxine Sodium (Synthroid) 50 mcg PO DAILY@0600 [facility] Last Admin: 01/22/19 05:54 Dose: 50 mcg Documented by: Melatonin (Melatonin) 3 mg PO QHS PRN PRN PRN Reason: INSOMNIA Last Admin: 01/20/19 22:24 Dose: 3 mg Documented by: Methylprednisolone (Solu-Medrol) 40 mg IV Q8 [facility] Last Admin: 01/22/19 05:53 Dose: 40 mg Documented by: Nutritional Formula (Lactose Free) (Ensure Enlive) 120 ml PO 4X/DAY [facility] Last Admin: 01/21/19 21:02 Dose: 120 ml Documented by: Pravastatin Sodium (Pravachol) 40 mg PO QHS [facility] Last Admin: 01/21/19 21:02 Dose: 40 mg Documented by: Ramipril (Altace) 10 mg PO QHS [facility] Last Admin: 01/21/19 21:02 Dose: 10 mg Documented by: Sodium Chloride () 10 - 40 ml IV UD PRN PRN Reason: SALINE FLUSH Last Admin: 01/21/19 14:50 Dose: 10 ml Documented by: Throat Lozenges (Cepacol Sore Throat Lozenge) 1 lozenge MUCOUS MEM Q2H PRN PRN PRN Reason: Sore throat or cough Discharge Diet: No Restrictions Discharge Activity: Return to Normal Activity Call your doctor if you observe: Fever of 101 or Higher, Shortness of breath, Dizziness, Fainting spells, Chest pain Home Medications: Medications to take at Discharge Budesonide/Formoterol 160/4.5 [Symbicort 160/4.5 Mcg Inhaler (SP)] 2 puff INHALATION BID 06/15/13 Ipratropium/Albuterol Respimat [Combivent Respimat Inhal [place]] 1 puff INHALATION 4X/DAY PRN PRN 06/15/13 Pravastatin [Pravachol] 40 mg PO QHS 06/15/13 Tiotropium [place] [Spiriva 18 MCG] 1 puff INHALATION DAILY 06/15/13 Escitalopram Oxalate 10 mg PO DAILY 01/20/19 Megestrol Acetate 400 mg PO BID 01/20/19 Ramipril 10 mg PO QHS 01/20/19 Guaifenesin [Mucinex] 1,200 mg PO BID #60 tab 01/22/19 Levofloxacin 750 mg PO DAILY #5 tab 01/22/19 Levothyroxine [Synthroid] 50 mcg PO DAILY@0600 #30 tab 01/22/19 Prednisone See Taper PO DAILY #30 tab 01/22/19 Following Prescrptions Were Given to Patient: Levofloxacin 750 mg PO DAILY #5 tab Transmission Status: Pending to [facility] #30 Guaifenesin [Mucinex] 1,200 mg PO BID #60 tab Transmission Status: Pending to [facility] #30 Prednisone See Taper PO DAILY #30 tab Transmission Status: Pending to [facility] #30 Levothyroxine [Synthroid] 50 mcg PO DAILY@0600 #30 tab Transmission Status: Pending to [facility] #30 Primary Care Physician: Chidi Trujillo MD [Primary Care Provider] - Please follow up with your Primary Care Physician in: 1 week Please Follow Up With: Jimbo Graham MD When: 3-5 days Disposition: Home Minutes spent on discharge:: 35 Patient Condition:: Stable Medical Necessity - Tobacco Use Smoking Status: Former smoker Meaningful Use Info Meaningful Use Diagnoses (Choose all that apply): None applicable
[2019-01-22 11:12] VITALS: PULSE 105; RESP 18; O2SAT 97
[2019-01-22] MEDS: guaiFENesin 1,200 MG Tablet 1200 MG PO (11:34)
[2019-01-22] MEDS: levoFLOXacin 750 MG Tablet PO (11:41)
--- NOTE | 2019-01-22 11:43 | NURSING ---
pt refusing ambulation pulse ox and PT. pt states its the same thing every time and i'm ready to go home. attempted to education pt but kept being interrupted and pt was unwilling to listen.
[2019-01-24 10:37] LABS: Pathologist Review Reviewed
== END 2019-01-22 12:48 | disposition home or self-care (01) | DRG 190 ==
PROVIDERS: Nurse Practitioner Family; Student in an Organized Health Care Education/Training Program; Admitting Provider Family Medicine; Family Provider Family Medicine; PCP Family Medicine; Referring Provider Family Medicine; Visit Provider Internal Medicine
DX: J44.1 Chronic obstructive pulmonary disease with (acute) exacerbation (principal); E43 Unspecified severe protein-calorie malnutrition; R64 Cachexia; B96.5 Pseudomonas (aeruginosa) (mallei) (pseudomallei) as the cause of diseases classified elsewhere; R60.0 Localized edema; I10 Essential (primary) hypertension; E78.5 Hyperlipidemia, unspecified; E03.9 Hypothyroidism, unspecified; F32.9 Major depressive disorder, single episode, unspecified; F41.9 Anxiety disorder, unspecified; Z68.20 Body mass index [BMI] 20.0-20.9, adult; Z23 Encounter for immunization; Z79.51 Long term (current) use of inhaled steroids; Z79.899 Other long term (current) drug therapy; Z85.118 Personal history of other malignant neoplasm of bronchus and lung; Z86.14 Personal history of Methicillin resistant Staphylococcus aureus infection; Z87.891 Personal history of nicotine dependence; Z88.2 Allergy status to sulfonamides; Z90.2 Acquired absence of lung [part of]
CPT/HCPCS: 36415; 71046; 71250; 80048; 83735; 83880; 84439; 84443; 84481; 85025; 85027; 87449; 87633; 93306; 94640; 99251; G0008; J7050; Q9957; 90686; A4216; C8929; G0463; J1940

== ENCOUNTER → 2019-02-28 17:04 | Outpatient (CLI) | payer MEDICARE, OTHER, SELFPAY ==
[2019-01-20 16:53] VITALS: BMI 20.2
== END ==
PROVIDERS: Family Provider Family Medicine; PCP Family Medicine; Referring Provider Internal Medicine Pulmonary Disease; Visit Provider Internal Medicine Pulmonary Disease
DX: J44.9 Chronic obstructive pulmonary disease, unspecified (principal)
CPT/HCPCS: 87070; 87205

== ENCOUNTER → 2019-03-04 10:09 | Outpatient (CLI) | payer MEDICARE, OTHER, SELFPAY ==
[2019-01-20 16:53] VITALS: BMI 20.2
== END ==
PROVIDERS: Family Provider Family Medicine; PCP Family Medicine; Visit Provider Internal Medicine Pulmonary Disease
DX: R63.4 Abnormal weight loss (principal)
CPT/HCPCS: 87493

== ENCOUNTER → 2019-03-06 11:11 | Outpatient (CLI) | payer MEDICARE, OTHER, SELFPAY ==
[2019-01-20 16:53] VITALS: BMI 20.2
--- NOTE | 2019-03-06 11:15 | RAD_ITS ---
STUDY: X-RAY CHEST REASON FOR EXAM: Male, 69 years old. Shortness of breath. History of lung resection years ago. TECHNIQUE: Frontal and lateral views of the chest. COMPARISON: January 20, 2019 FINDINGS: Hyperexpansion of the left lung with mild diffuse interstitial pattern and granulomatous calcification unchanged. Stable opacification of the right hemithorax with postsurgical changes of lung resection. There is no demonstrated pleural abnormality. Cardiac silhouette cannot be evaluated. Normal mediastinum and adolfo. Normal visualized pulmonary arteries. Normal visualized aortic arch and descending thoracic aorta. Normal visualized thoracic spine. Normal visualized ribs, clavicles, and shoulders. There is no demonstrated abnormality of the visualized soft tissue structures of the upper abdomen. RAD/Chest PA and Lateral IMPRESSION: Stable chest with no acute superimposed finding. Electronically Signed: Gerald Tyson MD at 14:13 EST , Service support ,
== END ==
PROVIDERS: Family Provider Family Medicine; PCP Family Medicine; Referring Provider Internal Medicine Pulmonary Disease; Visit Provider Internal Medicine Pulmonary Disease
DX: J44.9 Chronic obstructive pulmonary disease, unspecified (principal)
CPT/HCPCS: 71046

== ENCOUNTER → 2019-05-09 15:15 | Outpatient (CLI) | payer MEDICARE, OTHER, SELFPAY ==
[2019-01-20 16:53] VITALS: BMI 20.2
--- NOTE | 2019-05-09 15:22 | RAD_ITS ---
STUDY: X-RAY - LEFT RADIUS AND ULNA REASON FOR EXAM: Male, 69 years old. FALL SEVERAL WEEKS AGO, CONTINUED PAIN AND GETTING WORSE TECHNIQUE: 2 view(s) of the forearm. COMPARISON: None. FINDINGS: An oblique nondisplaced fracture is noted involving the distal left ulnar diaphysis. The remainder of the proximal ulna is normal. The radius is normal. RAD/Forearm 2 Views IMPRESSION: Nondisplaced fracture of the distal left ulnar diaphysis. Electronically Signed: Chidi Cary, at 16:12 EST Tel , Service support ,
--- NOTE | 2019-05-09 15:23 | RAD_ITS ---
STUDY: X-RAY - LEFT WRIST REASON FOR EXAM: Male, 69 years old. FALL SEVERAL WEEKS AGO, CONTINUED PAIN AND GETTING WORSE TECHNIQUE: 3 view(s) of the wrist were obtained. COMPARISON: None. FINDINGS: Studies of the left wrist in 3 projection shows an oblique nondisplaced fracture involving the distal left ulnar diaphysis. The distal radial metaphysis appears to be normal. There is mild degenerative arthritis involving the first radiocarpal articulation. There is no other evidence of fracture, dislocation, or bony destruction. RAD/Wrist min 3 Views IMPRESSION: Nondisplaced oblique fracture of the distal left ulnar diaphysis. Electronically Signed: Chidi Cary, at 16:14 EST Tel , Service support ,
== END ==
PROVIDERS: PCP Family Medicine; Referring Provider Family Medicine; Visit Provider Family Medicine
DX: M25.532 Pain in left wrist (principal)
CPT/HCPCS: 73090; 73110

== ENCOUNTER 2019-06-04 17:17 | Inpatient (IN) | payer MEDICARE, OTHER, SELFPAY ==
[2019-01-20 16:53] VITALS: BMI 20.2
[2019-06-04] VITALS (7 sets, daily range): BP systolic 132–164; BP diastolic 86–100; PULSE 88–107; RESP 18–32; TEMP 36.4–36.7; O2SAT 91–96; BMI 18.3; BMI 17.4; BMI 17.5
--- NOTE | 2019-06-04 17:24 | RAD_ITS ---
STUDY: X-RAY CHEST REASON FOR EXAM: Male, 69 years old. FALL, RT HIP PAIN preoperative evaluation for repair of hip fracture. TECHNIQUE: 1 view COMPARISON: Prior chest radiograph of February 14, 2019. FINDINGS: Stable postoperative changes of the right lung status post resection of lung and ribs. Left lung is generally hyperexpanded without new consolidation or focal atelectasis. Chronic interstitial changes. Normal size heart. Normal mediastinum and adolfo. Normal visualized pulmonary arteries. Normal visualized aortic arch and descending thoracic aorta. Stable mid thoracic compression deformities. Normal visualized ribs, clavicles, and shoulders. There is no demonstrated abnormality of the visualized soft tissue structures of the upper abdomen. RAD/Chest 1 View (Portable) IMPRESSION: No acute cardiopulmonary findings or changes. Negative for new consolidation, focal atelectasis or pleural effusion. Stable postoperative changes of the right hemithorax status post lung and rib resections. Stable chronic changes of the left lung. Electronically Signed: Olga Gautam MD at 18:24 EDT , Service support ,
--- NOTE | 2019-06-04 17:24 | RAD_ITS ---
STUDY: X-RAY - PELVIS AND RIGHT HIP REASON FOR EXAM: Male, 69 years old. FALL, RT HIP PAIN TECHNIQUE: 3 views of the pelvis and hip. COMPARISON: None. FINDINGS: There is a non-specific bowel gas pattern. Normal visualized soft tissue structures. Normal bilateral iliac wings, sacroiliac joints and visualized sacrum. Normal bilateral superior and inferior pubic rami. Normal pubic symphysis. Normal bilateral ischial tuberosities. Acute subcapital right femoral neck fracture with mild impaction and external rotation. Normal acetabulum. There is moderate articular joint space narrowing of the hip. RAD/HIP, UNI W/ Pelvis 2-3 Views IMPRESSION: Acute subcapital right femoral neck fracture with mild impaction and external rotation. 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 Negative for pelvic fracture. Electronically Signed: Olga Gautam MD at 18:20 EDT , Service support ,
--- NOTE | 2019-06-04 17:24 | CT_ITS ---
STUDY: CT BRAIN WITHOUT CONTRAST REASON FOR EXAM: Male, 69 years old. FALL/acute traumatic injury RADIATION DOSAGE (If Supplied By Facility): CTDIvol = ( 44.99 ) mGy, DLP = ( 745.49 ) mGycm TECHNIQUE: Transaxial CT imaging of the brain was performed without administration of intravenous contrast material. Individualized dose optimization techniques were used for this CT. COMPARISON: No relevant priors. FINDINGS: Normal soft tissue structures. Normal calvarium. There is moderate cerebral atrophy with widening of the extra-axial spaces and ventricular dilatation. There are areas of decreased attenuation within the white matter tracts of the supratentorial brain, consistent with microvascular disease changes. There are small punctate calcifications of the basal ganglia which are seen in the aging brain as a normal variant. Normal brainstem. There is mild cerebellar atrophy. There is no intracranial hemorrhage. There are no findings of an acute ischemic infarction. Normal visualized paranasal sinuses. CT/Brain/Head without Contrast IMPRESSION: No acute intracranial findings. Negative for hemorrhage, hematoma or extra-axial fluid collection. Moderate involutional changes. Electronically Signed: Olga Gautam MD at 18:11 EDT , Service support ,
--- NOTE | 2019-06-04 17:24 | EKG12_ITS ---
Test Reason : FALL Blood Pressure : / mmHG Vent. Rate : 094 BPM Atrial Rate : 094 BPM P-R Int : 160 ms QRS Dur : 084 ms QT Int : 354 ms P-R-T Axes : 050 -27 061 degrees QTc Int : 442 ms Normal sinus rhythm Low voltage QRS Borderline ECG Confirmed by CARLOS ZEPEDA, REBEL ([id number]), video editor ANOOP KIM ([id number]) on 06/06/2019 8:27:48 AM Referred By: ALBERTO Confirmed By:REBEL GONZALEZ MD
[2019-06-04] MEDS: fentaNYL 100 MCG/2 ML Ampul 25 MCG IV ×2 (17:45→19:01)
[2019-06-04 17:47] LABS: Absolute Lymphocyte Count 1.06 X10^3/uL (0.83-4.51); Absolute Neutrophil Count 11.4 X10^3/uL (2.0-7.7); Basophil# 0.07 X10^3/uL; Basophil% 0.5 % (0-1); Eosinophil# 0.04 X10^3/uL; Eosinophils% 0.3 % (0-5); Hematocrit 44.7 % (40-54); Hemoglobin 14.5 g/dL (13.0-16.5); Lymphocyte # 1.06 X10^3/ul (4.0); Lymphocyte % 7.5 % (19-41); Mean Corp Hgb Conc 32.4 g/dL (32-36); Mean Corpuscular Hgb 30.7 pg (27.0-32.0); Mean Corpuscular Volume 94.5 fL (80-94); Mean Platelet Vol. 9.8 fl (6.2-12.0); Monocyte# 1.04 X10^3/uL; Monocyte% 7.4 % (0-10); NRBC Flagged by Analyzer 0 % (0-5); Neutrophil # 11.35 X10^3/uL (2.7-7.7); Neutrophil % 80.6 % (47-70); Platelet Count 451 K/mm3 (150-450); RBC Distribution Width CV 14.2 % (11.6-14.6); RBC Distribution Width SD 48.8 fl (35.1-43.9); Red Blood Count 4.73 M/mm3 (4.6-6.2); White Blood Count 14.1 K/mm3 (4.4-11.0)
[2019-06-04 18:00] LABS: International Normalized Ratio 1.1; Prothrombin Time (Protime)PT. 13.8 SECONDS (11.7-14.9)
[2019-06-04 18:01] LABS: Partial Thromboplast Time 24.6 Seconds (24.1-36.2)
[2019-06-04 18:08] LABS: Anion Gap 8 (5-15); BUN 26 mg/dL (7-18); BUN/Creat Ratio 27.2 RATIO (10-20); Calcium,Total 9.4 mg/dL (8.5-10.1); Chloride 103 mmol/L (98-107); Creatinine, Serum 0.96 mg/dL (0.70-1.30); EST Glomerular Filtration Rate 83 mL/min (>60); Est Glom Filt Rate - Afr Amer 100 mL/min (>60); Glucose 101 mg/dL (74-106); Potassium 4.3 mmol/L (3.5-5.1); Sodium Level 136 mmol/L (136-145)
--- NOTE | 2019-06-04 18:33 | ED.DCSUM_ITS ---
- ER Visit Summary Date of Service: 06/04/19 Chief Complaint: Right hip pain History of Present Illness: The patient is a 69 M with right hip pain after a fall. He is unsure if he had a syncopal episode. He said he felt dizzy. He denies any headache or blood thinner use. Denies any other injuries. Physical Examination: Afebrile and vital signs unremarkable. Head and neck atraumatic. Heart regular lungs clear. Abdomen soft. Right hip tender to palpation. Shortened and abnormally rotated. Neurovascular intact. Patient has a cast on his left forearm. Test Results: CT brain unremarkable. Labs fairly unremarkable. X-ray hip shows a femoral neck fracture. Emergency Department Course and Treatment: Patient is unsure who treated him for his left forearm fracture. I listed off the local orthopedic surgeons, and none of them sounded familiar. I could not find any documentation in the computer. Pain was treated with fentanyl. Work-up was unremarkable for a cause of his dizziness or syncope. I contacted medicine to admit the patient. Spoke with Dr. Trujillo who will see the patient if he is medically cleared. He plans to take the patient to the OR tomorrow. Treatment Plan: As above Disposition: Admission Impression: Right hip fracture, dizziness This note was generated with [employer] dictation software. It may contain incorrect words, spelling, and punctuation that were not noted in review of the chart prior to signing ED Disposition - Plan for ED Patient: Referrals: Chidi Mooney MD [Primary Care Provider] -
--- NOTE | 2019-06-04 18:42 | ED.RN ---
Pt's Matilda contacted per patient request. Updated her on patients condition and that patient will be admitted to the hospital.
--- NOTE | 2019-06-04 19:21 | HP.PCM_ITS ---
Problem List (1) Depressed affect Status: Suspected (2) Hip fracture Status: Acute Qualifiers: Encounter type: initial encounter Fracture type: closed Laterality: right Qualified Code(s): S72.001A - Fracture of unspecified part of neck of right femur, initial encounter for closed fracture (3) Dehydration Status: Acute (4) Elevated TSH Status: Chronic Comment: T4 was normal in January 2019 (5) COPD (chronic obstructive pulmonary disease) Status: Chronic (6) HTN (hypertension) Status: Chronic (7) Hyperlipidemia Status: Chronic (8) Pneumonia Status: Resolved (9) Tobacco dependence in remission Status: Chronic (10) Lung cancer Status: Resolved Qualifiers: Laterality: right Lung location: overlapping sites Qualified Code(s): C34.81 - Malignant neoplasm of overlapping sites of right bronchus and lung Comment: Status post right pneumonectomy (11) Status post pneumonectomy Status: Chronic Comment: Right (12) LVH (left ventricular hypertrophy) Status: Acute Comment: Mild (13) Grade II diastolic dysfunction Status: Chronic (14) Left ulnar fracture Status: Chronic Qualifiers: Encounter type: subsequent encounter Fracture type: closed Comment: in April of 2019 History of Present Illness Date of Admission: 06/04/19 Chief Complaint: R hip pain after a fall The patient is a 69 year old M with a past medical history of hypertension, lung cancer with right pneumonectomy in 1999, tobacco dependence in remission, COPD, stage II diastolic dysfunction, mild left ventricular hypertrophy and hyperlipidemia who presented to the emergency room complaining of right hip pain after a fall. He felt dizzy and then fell. He is not sure that he passed out. He had a similar episode the end of April and sustained a left ulnar fracture. The left forearm is currently in a cast. He tells me that he has not been eating or drinking enough recently. He denies feeling depressed, he states he is just not hungry. He denies any sleep disturbances. He is not currently being treated for depression but, he is on Megace. He denies chest pain, shortness of breath at rest, increased palpitations, history of cardiovascular disease, nausea/vomiting/diarrhea, recent fevers, change in his cough recently. Vital signs at presentation to the emergency department were temperature 97.5, pulse rate 107, blood pressure 133/86, respiratory rate 18 and he was 94 to 96% saturated on room air. CBC showed an elevated white blood cell count at 14.1 with a left shift. Hemoglobin was 14.5 and platelets are mildly increased at 451. PT and PTT are normal. BMP is remarkable for an elevated BUN at 26 with a creatinine of 0.96. Troponin was less than 0.015. EKG showed normal sinus rhythm with left axis deviation and no suspicious ST or T wave changes. A TSH in January 2019 was elevated at 10.4 however the free T4 was normal at 0.88. Brain CT showed no acute findings. Chest x-ray showed stable postoperative zelalem nges of the right hemithorax status post lung and rib resections. There were no infiltrates, pleural effusions or pulmonary vascular congestion noted. He is being admitted to the hospital for A R hip fracture and Dr. Venancio Trujillo has been consulted for repair. Past Medical History Past Medical History (Chronic Problems): Chronic Problems Elevated TSH (Chronic) T4 was normal in January 2019 Tobacco dependence in remission (Chronic) Status post pneumonectomy (Chronic) Right Grade II diastolic dysfunction (Chronic) Left ulnar fracture (Chronic) in April of 2019 HTN (hypertension) (Chronic) COPD (chronic obstructive pulmonary disease) (Chronic) Hyperlipidemia (Chronic) Allergies Sulfa (Sulfonamide Antibiotics) Allergy (Verified 06/04/19 17:27) Hives Home Medications: Ambulatory Orders Medication Instructions Recorded Budesonide/Formoterol 160/4.5 2 puff INHALATION BID 06/15/13 [Symbicort 160/4.5 Mcg Inhaler (SP)] Ipratropium/Albuterol Respimat 1 puff INHALATION 4X/DAY PRN PRN 06/15/13 [Combivent Respimat Inhal [place]] Pravastatin [Pravachol] 40 mg PO QHS 06/15/13 Tiotropium [place] [Spiriva 18 MCG] 1 puff INHALATION DAILY 06/15/13 Megestrol Acetate 400 mg PO BID 01/20/19 Ramipril 10 mg PO QHS 01/20/19 Guaifenesin [Mucinex] 1,200 mg PO BID #60 tab 01/22/19 Azithromycin [Zithromax] 250 mg PO DAILY 06/04/19 Surgical History: appendectomy, tonsillectomy, - - right pneumonectomy in 1999 Psychiatric History: No pertinent psych hx Lives: Spouse/ Significant Other Smoking Status: Former smoker Tobacco Use: Non-smoker Alcohol: Rare Drugs: None - *Family History Maternal History Items: Heart Disease, - - Ovarian cancer Paternal History Items: Heart Disease Review of Systems Constitutional: Reports: Anorexia. Denies: Chills, Fever, Weight Change Eyes: Denies: Blurred vision HEENT: Denies: Difficulty Swallowing, Head Aches, Nasal Congestion, Sinus Congestion, Sinus Drainage, Sore Throat Cardiovascular: Reports: Light Headedness - with standing. Denies: Chest Pain, Edema, Heaviness, Palpitations Respiratory: Reports: Shortness of breath upon exertion. Denies: Cough, Pleuritic Pain, Shortness of breath at rest, Sputum production, Wheezing Gastrointestinal: Reports: Constipation. Denies: Abdominal Pain, Diarrhea, Nausea, Vomiting Genitourinary: Denies: Dysuria Musculoskeletal: Reports: Joint Pain - right hip after a fall. Denies: Joint Te nderness Skin: Denies: Jaundice, Rash, Wounds Neurological: Denies: Blurred vision, Slurred speech, Confusion, Focal weakness, Headaches, Numbness, Tingling, Seizures Psychiatric: Reports: Depression - suspected ....he is irritable and he is not eating or drinking because he just isn't hungry. Denies: Anxiety, Homicidal Id eations, Suicidal Ideations Endocrine: Reports: Change in Body Habitus - he has been losing weight because he has stopped eating Hematologic/ Lymphatic: Denies: Easy Bruising, Easy Bleeding, Hx of blood clot - he has lost 17 lbs in the past 4 and 1/2 months VTE Information - Inpt Only VTE Present on Admission: No VTE Mechan Device Prophylaxis: SCD's VTE Pharm Prophylaxis ordered?: No Reason prophylaxis not ordered:: Treatment Not Indicated - going to surgery tomorrow to repair a R hip fracture Patient Problems: Active and Suspected Problems Depressed affect (Suspected) Hip fracture (Acute) Dehydration (Acute) LVH (left ventricular hypertrophy) (Acute) Mild - Physical Exam Vitals/I&O's: Vital Signs Temp Pulse Resp BP Pulse Ox 97.9 F 88 31 H 132/87 H 96 06/04/19 18:41 06/04/19 18:41 06/04/19 18:41 06/04/19 18:41 06/04/19 18:41 Oxygen Delivery Method Room Air Weight: 113 lb 12.136 oz Body Mass Index (BMI) 18.3 General: Alert, Oriented x3, Cooperative, - - appears cachectic with muscle wasting HEENT: Atraumatic, PERRLA, EOMI, Normocephalic Oral: No Gingival or Mucosal Lesions/ Ulcerations, Dry Mucosa Neck: Supple, No JVD, Negative Carotid Bruits, No Nodes, No Nuchal Rigidity, Trachea Midline Lungs: Clear to auscultation, No rhonchi, No wheeze, No rales, Diminished Cardiovascular: Regular rate, Regular Rhythm, Normal S1, Normal S2, No murmurs, No Ectopic Activity, No rub noted, No Gallop Abdomen: Bowel Sounds Present, Soft, Non Tender, Non-Distended Extremities: No clubbing, No cyanosis, No edema, Capillary Refill Less than 3 Seconds, No Calf Tenderness, Diminished Peripheral Pulses Skin: No rashes, No breakdown Musculoskeletal: Muscle Wasting Neurological: Cranial nerves II-XII grossly intact, Neuro grossly intact Psych/Mental Status: Appropriate, Depressed - and irritable Laboratory Results 06/04/19 17:40: WBC 14.1 H, RBC 4.73, Hgb 14.5, Hct 44.7, MCV 94.5 H, MCH 30.7, MCHC 32.4, RDW Std Deviation 48.8 H, RDW Coeff of Kelly 14.2, Plt Count 451 H, MPV 9.8, Immature Gran % (Auto) 3.700 H, Neut % (Auto) 80.6 H, Lymph % (Auto) 7.5 L , [place] % (Auto) 7.4, Eos % (Auto) 0.3, Baso % (Auto) 0.5, Absolute Neuts (auto) 11.4 H, Absolute Lymphs (auto) 1.06, Nucleated RBC % 0 06/04/19 17:40: PT 13.8, INR 1.1, APTT 24.6 06/04/19 17:40: Sodium 136, Potassium 4.3, Chloride 103, Carbon Dioxide 25.0, Anion Gap 8, BUN 26 H, Creatinine 0.96, Estim Creat Clear Calc 53.00, Est GFR (MDRD) Af Amer 100, Est GFR (MDRD) Non-Af 83, BUN/Creatinine Ratio 27.2 H, Glucose 101, Calcium 9.4, Troponin I < 0.015 Assessment/Plan All Active Problems Hip fracture (Acute) Dehydration (Acute) LVH (left ventricular hypertrophy) (Acute) Lung cancer (Resolved) Lung cancer (Resolved) Pneumonia (Resolved) Impressions 1. closed R hip subcapital fracture - due to a fall. He felt lightheaded and then fell. Can not tell me if he passed out. He also fell 05/09/19 and sustained a L ulnar fracture and the left forearm is currently in a cast. He can not recall who put the cast on. 2. malnutrition with muscle wasting 3. COPD 4. depression - he had been on Escitalopram in January but, it is no longer on the med reconciliation. 5. inanition 6. hx of Lung CA - S/P R pneumonectomy in 1999 7. tobacco dependence in remission 8. Hypertension 9. Hyperlipidemia 10. Mild left ventricular hypertrophy 11. Stage II diastolic dysfunction with a ejection fraction of 78% 12. mild dehydration 13. Elevated TSH in Jan 2019 but the T4 is normal. Admit to the hospital and place on telemetry. Pt is at lower than normal risk for surgical complications for a hemiarthroplasty Surgical risk calculator placed on the chart. Start on Remeron 15 mg Q HS for depression with inanition and malnutrition Consult DC planning to evaluate for depression and make a referral to behavioral Health if appropriate Consult the reed polisher to evaluate for malnutrition and make recommendations No pharmacologic DVT prophylaxis tonight in preparation for the surgery tomorrow SCD's tonight Needs a DEXA in the future check a vitamin D level Calcium and vitamin D supplementation hydrate tonight with NS stress test in 2013 negative. ECHO in January 2019 with no wall motion abnormalities and a hyperdynamic LV Inpatient E&M: 05583 Init Hosp L3
[2019-06-04 20:26] LABS: Bacteria 0 SEEN /hpf (None Seen); White Blood Cells 0 SEEN /hpf (0-5)
[2019-06-04 20:28] LABS: Color, Urine Yellow (Yellow); Glucose, Dipstick Normal (Normal); Ketone-Dipstick 15 mg/dl (Negative); Leukocyte Esterase-Dipstick Negative /ul (Negative); Nitrite-Dipstick Negative (Negative); Occult Blood-Urine 25 /ul (Negative); Protein-Dipstick 15 mg/dl (Negative); Specific Gravity, Urine 1.025 (1.002-1.030); Urine Clarity Sl. Cloudy (Clear); Urine Urobilinogen 1 mg/dl (Normal)
[2019-06-04] MEDS: Ipratropium/Albuterol Sulfate 3 ML AMPUL.NEB INHALATION (20:30)
[2019-06-04] MEDS: Budesonide Respules 0.5 MG/2 ML AMPUL.NEB. INHALATION (20:30)
[2019-06-04 20:39] LABS: Urine Bilirubin Dipstick 1 mg/dL (Negative)
[2019-06-04 20:40] LABS: Mucous, Urine 1+ /hpf (<or=2+); Red Blood Cells-Urine 0-5 SEEN /hpf (0-5); Squamous Epithelial Cells - UA 0-5 SEEN /hpf (0-5)
[2019-06-04 20:53] LABS: Magnesium 2.2 mg/dL (1.6-2.6)
[2019-06-04 20:55] LABS: Phosphorus 2.7 mg/dL (2.5-4.9)
[2019-06-04 21:41] LABS: M R Staph aureus DNA By PCR Negative (Negative); Probe Check PASS; Specimen Processing Control PASS
[2019-06-04] MEDS: 0.9% Normal Saline 1,000 ML 75 ML IV (22:10)
[2019-06-04] MEDS: Mirtazapine 15 MG Tablet PO (22:11)
[2019-06-04] MEDS: oxyCODONE 5 MG Tablet 10 MG PO (22:11)
[2019-06-04] MEDS: guaiFENesin 1,200 MG Tablet 1200 MG PO (22:11)
[2019-06-04] MEDS: Ramipril 10 MG Capsule PO (22:11)
[2019-06-04] MEDS: Pravastatin 40 MG Tablet PO (22:11)
[2019-06-04] MEDS: Senna/Docusate Sodium 1 Tablet 2 TABLET PO (22:11)
[2019-06-05] VITALS (55 sets, daily range): BP systolic 58–190; BP diastolic 42–134; PULSE 80–121; RESP 12–47; TEMP 35.7–37.8; O2SAT 86–99; BMI 17.4; BMI 17.5
[2019-06-05] MEDS: oxyCODONE 5 MG Tablet 10 MG PO (01:54)
[2019-06-05] MEDS: Ipratropium/Albuterol Sulfate 3 ML AMPUL.NEB INHALATION ×4 (07:17→21:00)
[2019-06-05] MEDS: Budesonide Respules 0.5 MG/2 ML AMPUL.NEB. INHALATION ×2 (07:17→21:00)
--- NOTE | 2019-06-05 08:09 | CASEMGMT ---
Social Work Note Per clinical documentation improvement specialist questions pt has completed advanced directives, hasn't provided copies to [facility] and unable to bring in documents. Monse Aiken BOARDING HOUSE MANAGER, TRAINING LEAD
[2019-06-05 08:42] LABS: Vitamin D,25 Hydroxy 22.5 ng/mL
--- NOTE | 2019-06-05 08:52 | PN_ITS ---
Patient Problems: Active and Suspected Problems Hip fracture (Acute) Subjective: Chief complaint: Follow-up after admission for acute traumatic impacted right femoral neck fracture. Patient seen and examined. No acute events overnight. He complained of right hip pain upon movement. At rest, no pain. Patient stated that he was dizzy and he thinks that he fell. He had a recent nondisplaced oblique fracture of the distal left ulnar diaphysis on May 09, 2019 and before that fracture, he was dizzy as well and he had a fall. At this time, his vital signs are stable. - Physical Exam Vitals/I&O's: Vital Signs Temp Pulse Resp BP Pulse Ox 98.0 F 85 20 H 132/67 H 95 06/05/19 01:57 06/05/19 07:17 06/05/19 07:17 06/05/19 01:57 06/05/19 07:17 Oxygen Delivery Method Room Air Weight: 108 lb 3.951 oz Body Mass Index (BMI) 17.4 Intake and Output for Last 24 Hours 06/03/19 06/04/19 06/05/19 23:59 23:59 23:59 Output Total 300 / 300 Balance -300 / -300 General: Alert, Oriented x3, Cooperative, No apparent distress HEENT: Atraumatic, PERRLA, EOMI, Normocephalic Oral: Moist Mucosa, No Gingival or Mucosal Lesions/ Ulcerations Neck: Supple, No JVD, Negative Carotid Bruits, Trachea Midline, Thyroid Normal Size and Texture Lungs: Clear to auscultation, Normal air movement, No wheeze, No rales, Diminished, Rhonchi Cardiovascular: Regular rate, Regular Rhythm, Normal S1, Normal S2, PMI Normal Abdomen: Bowel Sounds Present, Soft, Non Tender, Non-Distended, No Hepato- splenomegaly Extremities: No clubbing, No cyanosis, No edema Skin: No rashes, No breakdown Lymphatic: No Cervical, Supraclavicular, or Inguinal Adenopathy Neurological: Cranial nerves II-XII grossly intact, Motor Exam 5/5 strength throughout Psych/Mental Status: Normal Affect, Appropriate, Alert and oriented to time, place, person, mood and affect Laboratory Results 06/04/19 17:40: WBC 14.1 H, RBC 4.73, Hgb 14.5, Hct 44.7, MCV 94.5 H, MCH 30.7, MCHC 32.4, RDW Std Deviation 48.8 H, RDW Coeff of Kelly 14.2, Plt Count 451 H, MPV 9.8, Immature Gran % (Auto) 3.700 H, Neut % (Auto) 80.6 H, Lymph % (Auto) 7.5 L, [place] % (Auto) 7.4, Eos % (Auto) 0.3, Baso % (Auto) 0.5, Absolute Neuts (auto) 11.4 H, Absolute Lymphs (auto) 1.06, Nucleated RBC % 0 06/04/19 17:40: PT 13.8, INR 1.1, APTT 24.6 06/04/19 17:40: Sodium 136, Potassium 4.3, Chloride 103, Carbon Dioxide 25.0, Anion Gap 8, BUN 26 H, Creatinine 0.96, Estim Creat Clear Calc 53.00, Est GFR (MDRD) Af Amer 100, Est GFR (MDRD) Non-Af 83, BUN/Creatinine Ratio 27.2 H, Glucose 101, Calcium 9.4, Troponin I < 0.015 06/04/19 20:15: MRSA (PCR) Negative 06/04/19 20:15: Urine Color Yellow, Urine Clarity Sl. Cloudy, Urine pH 5.0, Ur Specific [place] 1.025, Urine Protein 15 H, Urine Glucose (UA) Normal, Urine Ketones 15 H, Urine Occult Blood 25 H, Urine Nitrite Negative, Urine Bilirubin 1 H, Urine Urobilinogen 1 H, Ur Leukocyte Esterase Negative, Urine RBC 0-5 SEEN, Urine WBC 0 SEEN, Ur Squamous Epith Cells 0-5 SEEN, Urine Bacteria 0 SEEN, Urine Mucus 1+ 06/04/19 20:30: Magnesium 2.2 06/04/19 20:30: Phosphorus 2.7 06/04/19 20:30: Blood Type A POSITIVE, Antibody Screen NEGATIVE 06/04/19 20:30: Vitamin D 25-Hydroxy 22.5 Clinical Impression(s) from Imaging Studies Brain CT 06/04/19 17:24 IMPRESSION: No acute intracranial findings. Negative for hemorrhage, hematoma or extra-axial fluid collection. Moderate involutional changes. Electronically Signed: Olga Gautam MD at 18:11 EDT , Service support , Chest X-Ray 06/04/19 17:24 IMPRESSION: No acute cardiopulmonary findings or changes. Negative for new consolidation, focal atelectasis or pleural effusion. Stable postoperative changes of the right hemithorax status post lung and rib resections. Stable chronic changes of the left lung. Electronically Signed: Olga Gautam MD at 18:24 EDT , Service support , Hip/Pelvis X-Ray 06/04/19 17:24 IMPRESSION: Acute subcapital right femoral neck fracture with mild impaction and external rotation. 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 Negative for pelvic fracture. Electronically Signed: Olga Gautam MD at 18:20 EDT , Service support , Current Medications Acetaminophen (Tylenol) 650 mg PO Q6H PRN PRN PRN Reason: Pain Score 1-10/Temp > 100.7 F Al Hydroxide/Mg Hydroxide (Mylanta Ii) 30 ml PO Q6H PRN PRN PRN Reason: Gastric Burning Albuterol/Ipratropium (Duoneb) 3 ml INHALATION Q4H.RT [facility] Last Admin: 06/05/19 07:17 Dose: 3 ml Documented by: Budesonide (Pulmicort Aerosol) 0.5 mg INHALATION Q12H.RT [facility] Last Admin: 06/05/19 07:17 Dose: 0.5 mg Documented by: Calcium/Vitamin D (Os-Tucker 500mg + D) [facility] Sodium Chloride 68.4 ml/Ropivacaine 200 mg/Epinephrine HCl 0.6 mg/Morphine Sulfate 5 mg/Ketorolac Tromethamine 30 mg 0 ml OPERA.SITE X1 ONE Stop: 06/05/19 10:01 Fentanyl Citrate (Sublimaze (100mcg Ampule)) 25 mcg IV Q2H PRN PRN PRN Reason: pain 6-10/10 Guaifenesin (Mucinex) 1,200 mg PO BID [facility] Last Admin: 06/04/19 22:11 Dose: 1,200 mg Documented by: Sodium Chloride () 1,000 mls @ 75 mls/hr IV .[id number] [facility] Last Admin: 06/04/19 22:10 Dose: 75 mls/hr Documented by: Cefazolin Sodium 2 gm/ Sodium (Chloride) 110 mls @ 150 mls/hr IV SEND TO OR W/PATIENT ONE Stop: 06/05/19 10:43 Melatonin (Melatonin) 3 mg PO QHS PRN PRN PRN Reason: INSOMNIA Mirtazapine (Remeron) 15 mg PO QHS [facility] Last Admin: 06/04/19 22:11 Dose: 15 mg Documented by: Ondansetron HCl (Zofran) 4 mg IV Q8H PRN PRN PRN Reason: NAUSEA/VOMITING Oxycodone HCl (Oxyir) 10 mg PO Q4H PRN PRN PRN Reason: Pain Score 4-5/10 Last Admin: 06/05/19 01:54 Dose: 10 mg Documented by: Pravastatin Sodium (Pravachol) 40 mg PO QHS [facility] Last Admin: 06/04/19 22:11 Dose: 40 mg Documented by: Prochlorperazine Edisylate (Compazine Iv) 5 mg IV Q4H PRN PRN PRN Reason: Breakthrough nausea/vomiting Ramipril (Altace) 10 mg PO QHS [facility] Last Admin: 06/04/19 22:11 Dose: 10 mg Documented by: Senna/Docusate Sodium (Senokot-S, Michelle-Colace) 2 tablet PO BID [facility] Last Admin: 06/04/19 22:11 Dose: 2 tablet Documented by: Sodium Chloride () 10 - 40 ml IV UD PRN PRN Reason: SALINE FLUSH Throat Lozenges (Cepacol Sore Throat Lozenge) 1 lozenge MUCOUS MEM Q2H PRN PRN PRN Reason: SORE THROAT Medical Necessity - Tobacco Use Smoking Status: Former smoker Assessment/Plan All Active Problems Hip fracture (Acute) This is a 69 years old male patient presented to the emergency room because of right hip pain after a fall and he was found to have right hip fracture, admitted for surgical repair. #1 acute traumatic impacted right femoral neck fracture: He is on IV fentanyl and OxyIR PRN for pain. X-ray of the right hip reviewed. Routine blood work was remarkable for leukocytosis which is likely reactive, otherwise normal. He is on IV cefazolin for perioperative prophylaxis. Orthopedic surgery consulted, plan for surgery today. #2 preoperative evaluation: Patient with past medical history as mentioned above, lives at home. Chest x-ray reviewed. EKG revealed normal sinus rhythm without evidence of acute segment changes or cardiac arrhythmias. Based on his age, past medical history, functional status and type of surgery, his estimated risk for perioperative myocardial infarction or cardiac arrest is 0.66%. Patient had 2D echocardiogram on January, that revealed normal LV size, EF of 75%, stage II diastolic function, small pericardial effusion without evidence of cardiac tamponade. This patient will be at moderate risk for intraoperative or postoperative complications. We will proceed for surgery, no indication for further testing preoperatively. #3 dizziness/suspected near syncopal episodes: It is unclear if patient lost his consciousness. He had a fall several weeks ago and he fractured his left wrist. He mentioned he was dizzy and lightheaded yesterday and about to pass out before he fell. CT scan brain showed no acute findings. EKG revealed no cardiac arrhythmias or acute segment changes. 2D echocardiogram was done on January 2019 reviewed as above. Plan: Cardiac monitoring, bilateral carotid Doppler. #4 hypertension: Blood pressure stable, continue ramipril. #5 COPD: Clinically stable, pulse ox is maintained on room air. Continue DuoNeb and albuterol as well as Pulmicort twice daily. #6 hyperlipidemia: Continue statins. #7 recent history of nondisplaced distal left ulnar diaphysis fracture: Due to mechanical fall, on cast. Stable. #8 history of lung cancer: Status post pneumonectomy, in remission, stable. #8 DVT prophylaxis: Subcu heparin. This note was generated with [employer] dictation software. It may contain incorrect words, spelling, and punctuation that were not noted in checking the note before signing. Inpatient E&M: 63814 Subs Hosp L2
[2019-06-05] MEDS: Lactated Ringers 1,000 ML 100 ML IV (09:44)
--- NOTE | 2019-06-05 09:50 | CASEMGMT ---
Addendum entered by Monse Aiken 06/05/19 14:26: Pt still not back from surgery. SW to follow up with pt tomorrow to discuss discharge plans and depression. Original Note: Social Work Note Pt is currently down at surgery. SW will follow up with pt regarding discharge plans and depression later today or tomorrow. Monse Aiken EARLY CHILDHOOD EDUCATION WORKER, PORTFOLIO MANAGEMENT MARKETING
--- NOTE | 2019-06-05 10:30 | CASEMGMT ---
RN CM attempted to complete face to face assessment with patient. Patient is currently at surgery. RN CM will follow-up with patient at later time.
--- NOTE | 2019-06-05 11:10 | HIP_PTH ---
PATIENT: PJ PERERA LOC: [facility] U#:[id number] AGE/SX: 69/M ROOM: [facility]05 RE06/04/[address]: Dr. Cassy Gonzales MD : 1950 BED: 1 DIS: 06/06/2019 SPEC #: [id number] RECD: 06/05/19 14:26 STATUS: [place] REQ #: [id number] KORIN: 06/05/19 11:[address]: Venancio Trujillo DEPT: SURGICAL PATHOLOGY RECD BY: Diego Coe ENTERED: 06/06/19 06:47 SP TYPE: TOTAL HIP OTHR DR: DO Dr. Cassy Michelle MD Dr. John Prokop, MD Tissues: Hip, NOS Procedures: Decalcification bone/plaque Surgery Specimen Level IV HEADER OPERATION: Right hip hemiarthroplasty PRE-OP DIAGNOSIS: Fractured right hip TISSUE SUBMITTED: Right femoral head MICROSCOPIC DIAGNOSIS Right hip, fracture: Consistent with organizing fracture callous. AM:jef 06/09/19 MICROSCOPIC DESCRIPTION Slides are reviewed. GROSS DESCRIPTION Received is one container designated right femoral head. The specimen consists of a hess femoral head measuring 5 x 5 x 4.5 cm. The articular surface is smooth. The resection margin is irregular and hemorrhagic. Also present in the container are multiple detached pieces of bone measuring in aggregate 7 x 5 x 3 cm. Soft tissue is not identified. Machine Staker sections are submitted in three cassettes as follows: 1 & 2 - detached fragments of bone, 3 - femoral head after decalcification. / SJ:jef 06/06/19 TC:5 CPT: 40819, 75059
--- NOTE | 2019-06-05 11:27 | RAD_ITS ---
STUDY: X-RAY - PELVIS AND RIGHT HIP REASON FOR EXAM: Male, 69 years old. POST OP HIP TECHNIQUE: 2 views of the pelvis and hip. COMPARISON: Comparison is made with prior examination of June 04, 2019. FINDINGS: The patient is status post right hip replacement. There is good alignment. Postoperative soft tissue changes. RAD/Hip Min 2 Views (Portable) IMPRESSION: Status post right hip replacement. There is good alignment. Postoperative soft tissue changes. Electronically Signed: Rashel Alexandra, at 14:44 EDT , Service support ,
[2019-06-05] MEDS: Cefazolin 2 GM in 0.9% Normal Saline 100 ML IV (11:28)
--- NOTE | 2019-06-05 11:45 | PCM.CONS.GEN ---
Reason for Consult Date of Consultation: 06/05/19 History of Present Illness: The patient is a 69 year old male patient that fell yesterday sustaining a right hip fracture. Patient states he is a limited ambulator. He is not very active. He denies pre-existing right hip pain. He was not able to ambulate after falling on his right hip yesterday. He was brought to [facility]. Diagnosed with a right hip fracture. Orthopedics appropriately consulted. He was evaluated by the ER physician, hospitalist, anesthesia department. He was deemed acceptable risk for surgery for right hip fracture at [facility]. [] Past Medical History Past Medical History (Chronic Problems): Chronic Problems Elevated TSH (Chronic) T4 was normal in January 2019 Tobacco dependence in remission (Chronic) Status post pneumonectomy (Chronic) Right LVH (left ventricular hypertrophy) (Chronic) Mild Grade II diastolic dysfunction (Chronic) Left ulnar fracture (Chronic) in April of 2019 HTN (hypertension) (Chronic) COPD (chronic obstructive pulmonary disease) (Chronic) Hyperlipidemia (Chronic) Allergies Sulfa (Sulfonamide Antibiotics) Allergy (Verified 06/04/19 17:27) Hives Home Medications: Ambulatory Orders Medication Instructions Recorded Budesonide/Formoterol 160/4.5 2 puff INHALATION BID 06/15/13 [Symbicort 160/4.5 Mcg Inhaler (SP)] Ipratropium/Albuterol Respimat 1 puff INHALATION 4X/DAY PRN PRN 06/15/13 [Combivent Respimat Inhal [place]] Pravastatin [Pravachol] 40 mg PO QHS 06/15/13 Tiotropium [place] [Spiriva 18 MCG] 1 puff INHALATION DAILY 06/15/13 Megestrol Acetate 400 mg PO BID 01/20/19 Ramipril 10 mg PO QHS 01/20/19 Guaifenesin [Mucinex] 1,200 mg PO BID #60 tab 01/22/19 Azithromycin [Zithromax] 250 mg PO DAILY 06/04/19 Surgical History: appendectomy, tonsillectomy, - - right pneumonectomy in 1999 Psychiatric History: No pertinent psych hx Lives: Spouse/ Significant Other Smoking Status: Former smoker Tobacco Use: Non-smoker Alcohol: Rare Drugs: None - *Family History Maternal History Items: Heart Disease, - - Ovarian cancer Paternal History Items: Heart Disease Patient Problems: Active and Suspected Problems Hip fracture (Acute) Objective: Right hip has shortening and external rotation. Right hip has pain with rotation or flexion. Left hip had no pain on palpation. Left hip had no pain with motion. Distal pulses and sensation are intact. No calf pain or swelling bilaterally. Negative Homans sign bilaterally. Skin is intact. X-rays AP pelvis AP and lateral right hip shows a displaced somewhat impacted femoral neck fracture. No severe hip joint pre-existing arthritis noted. Osteopenia noted Laboratory work and vital signs reviewed Review of systems obtained. He does have chronic shortness of breath which is not new. Denies fever or chills or systemic symptoms. Eyes changes with eyes ears nose or throat heart, bowel or bladder. - Physical Exam Vitals/I&O's: Vital Signs Temp Pulse Resp BP Pulse Ox 100.1 F H 96 26 H 138/87 H 93 06/05/19 09:13 06/05/19 10:35 06/05/19 10:35 06/05/19 09:13 06/05/19 09:13 Oxygen Flow Rate (L/min) 3 Oxygen Delivery Method Nasal Cannula Weight: 49.1 kg Body Mass Index (BMI) 17.4 Intake and Output for Last 24 Hours 06/03/19 06/04/19 06/05/19 23:59 23:59 23:59 Intake Total 865 / 865 Output Total 300 / 300 Balance 565 / 565 Microbiology Past 72 Hours 06/04/19 20:15 Urine Catheter - Gordillo Urine Culture - Preliminary Culture exhibits no growth. Laboratory Results 06/04/19 17:40: WBC 14.1 H, RBC 4.73, Hgb 14.5, Hct 44.7, MCV 94.5 H, MCH 30.7, MCHC 32.4, RDW Std Deviation 48.8 H, RDW Coeff of Kelly 14.2, Plt Count 451 H, MPV 9.8, Immature Gran % (Auto) 3.700 H, Neut % (Auto) 80.6 H, Lymph % (Auto) 7.5 L, Travis % (Auto) 7.4, Eos % (Auto) 0.3, Baso % (Auto) 0.5, Absolute Neuts (auto) 11.4 H, Absolute Lymphs (auto) 1.06, Nucleated RBC % 0 06/04/19 17:40: PT 13.8, INR 1.1, APTT 24.6 06/04/19 17:40: Sodium 136, Potassium 4.3, Chloride 103, Carbon Dioxide 25.0, Anion Gap 8, BUN 26 H, Creatinine 0.96, Estim Creat Clear Calc 53.00, Est GFR (MDRD) Af Amer 100, Est GFR (MDRD) Non-Af 83, BUN/Creatinine Ratio 27.2 H, Glucose 101, Calcium 9.4, Troponin I < 0.015 06/04/19 20:15: MRSA (PCR) Negative 06/04/19 20:15: Urine Color Yellow, Urine Clarity Sl. Cloudy, Urine pH 5.0, Ur Specific [place] 1.025, Urine Protein 15 H, Urine Glucose (UA) Normal, Urine Ketones 15 H, Urine Occult Blood 25 H, Urine Nitrite Negative, Urine Bilirubin 1 H, Urine Urobilinogen 1 H, Ur Leukocyte Esterase Negative, Urine RBC 0-5 SEEN, Urine WBC 0 SEEN, Ur Squamous Epith Cells 0-5 SEEN, Urine Bacteria 0 SEEN, Urine Mucus 1+ 06/04/19 20:30: Magnesium 2.2 06/04/19 20:30: Phosphorus 2.7 06/04/19 20:30: Blood Type A POSITIVE, Antibody Screen NEGATIVE 06/04/19 20:30: Vitamin D 25-Hydroxy 22.5 Current Medications Acetaminophen (Tylenol) 650 mg PO Q6H PRN PRN PRN Reason: Pain Score 1-10/Temp > 100.7 F Al Hydroxide/Mg Hydroxide (Mylanta Ii) 30 ml PO Q6H PRN PRN PRN Reason: Gastric Burning Albuterol/Ipratropium (Duoneb) 3 ml INHALATION Q4H.RT [facility] Last Admin: 06/05/19 10:35 Dose: 3 ml Documented by: Aspirin (Aspirin, Baby) 81 mg PO BID [facility] Budesonide (Pulmicort Aerosol) 0.5 mg INHALATION Q12H.RT [facility] Last Admin: 06/05/19 07:17 Dose: 0.5 mg Documented by: Calcium/Vitamin D (Os-Tucker 500mg + D) [facility] Last Admin: 06/05/19 08:00 Dose: Not Given Documented by: Fentanyl Citrate (Sublimaze (100mcg Ampule)) 25 mcg IV Q2H PRN PRN PRN Reason: pain 6-10/10 Guaifenesin (Mucinex) 1,200 mg PO BID [facility] Last Admin: 06/05/19 10:39 Dose: Not Given Documented by: Sodium Chloride () 1,000 mls @ 75 mls/hr IV .[id number] [facility] Last Admin: 06/05/19 10:39 Dose: Not Given Documented by: Lactated Ringer's () 1,000 mls @ 100 mls/hr IV .Q10H [facility] Last Admin: 06/05/19 09:44 Dose: 100 mls/hr Documented by: Cefazolin Sodium () 1 gm in 50 mls @ 150 mls/hr IV Q6 [facility] Stop: 06/06/19 00:19 Melatonin (Melatonin) 3 mg PO QHS PRN PRN PRN Reason: INSOMNIA Mirtazapine (Remeron) 15 mg PO QHS [facility] Last Admin: 06/04/19 22:11 Dose: 15 mg Documented by: Ondansetron HCl (Zofran) 4 mg IV Q8H PRN PRN PRN Reason: NAUSEA/VOMITING Oxycodone HCl (Oxyir) 10 mg PO Q4H PRN PRN PRN Reason: Pain Score 4-5/10 Last Admin: 06/05/19 01:54 Dose: 10 mg Documented by: Pravastatin Sodium (Pravachol) 40 mg PO QHS [facility] Last Admin: 06/04/19 22:11 Dose: 40 mg Documented by: Prochlorperazine Edisylate (Compazine Iv) 5 mg IV Q4H PRN PRN PRN Reason: Breakthrough nausea/vomiting Ramipril (Altace) 10 mg PO QHS [facility] Last Admin: 06/04/19 22:11 Dose: 10 mg Documented by: Senna/Docusate Sodium (Senokot-S, Michelle-Colace) 2 tablet PO BID [facility] Last Admin: 06/05/19 10:39 Dose: Not Given Documented by: Sodium Chloride () 10 - 40 ml IV UD PRN PRN Reason: SALINE FLUSH Throat Lozenges (Cepacol Sore Throat Lozenge) 1 lozenge MUCOUS MEM Q2H PRN PRN PRN Reason: SORE THROAT Assessment/Plan All Active Problems Hip fracture (Acute) Right hip displaced femoral neck fracture: Surgical and nonsurgical options discussed. Possibility of internal fixation, hemiarthroplasty, total hip replacement discussed with him and his . was only available via phone. We have decided to do either hemiarthroplasty or total hip replacement depending upon the amount of arthritis determined intraoperatively. Therefore plan be weightbearing as tolerated after surgery. Risk of surgery including but not limited to from operative or postoperative complications. Risk of anesthetic complications such as heart attacks, strokes, seizures, or . Risk of infections. Risk of damage to nerves arteries tendons. Risk of inadvertent fractures or dislocations. Risk of bone or wound healing complications. Possibility of nonunion malunion pain stiffness weakness. Possible need for further surgery such as hardware removal. Risk of DVT PE and other potential complications could lead to or disability explained. No guarantees were stated or implied. All of their questions were answered. Appropriate informed consent was obtained and signed for surgical intervention. Plan continued postoperative management by the medical service. Aspirin for DVT prevention. Perioperative course of Ancef.
--- NOTE | 2019-06-05 13:16 | PCM.OP.PRO ---
Procedure Report Date of Procedure: 06/05/19 Preoperative diagnosis: Right hip displaced femoral neck fracture Postoperative diagnosis: Same Operation: Right hip cemented hemiarthroplasty Surgeon: Dr. Venancio Trujillo MD Customer Service Correspondence Clerk: Zahra Boykin PA-C Anesthesia: Spinal Anesthesiologist; Dr. Lee/KRISTINA Special medications: IV [Ancef], IV Tranexamic acid IV x 1 Indications for surgery : Patient is a 69 -year-old [male] that fell yesterday fracturing his right hip. Appropriate informed consent was obtained and signed. Appropriate medical workup was performed preoperatively and patient was deemed safe for surgery by the anesthesia department certified surgical assistantGALINDO was utilized throughout the entire procedure. They were vital in helping with patient positioning, holding of retractors, exposing the tissues adequately for safe completion of the procedure including cutting of the bone, helping supervisor painting shipyard appropriate alignment and sizing of the components, implantation of the components, as well as wound closure, bandage application, and safe patient transfer. Without captain's assistant, physician teacher's assistant, surgical time would have been significantly increased, and surgical outcome would have been less optimal. Operative findings: Patient displaced comminuted right femoral neck fracture. We used a Accolade cemented stem size #7 cemented. Bipolar 51 mm femoral head with a +4 neck length. This reproduced there anatomy nicely. Clinically good leg lengths were noted. Good hip stability through range of motion with no undue pistoning. Standard wound closure in layers, followed by dawn, followed by Mepilex dressing Details of procedure: Patient was taken to the operating room and transferred to the operating table. Given appropriate anesthetic agent by that department. Patient was then rolled into a lateral decubitus position with the involved painful hip up in the air. Appropriate timeouts had been performed. Hip had been appropriately marked with my initials. Padded anterior and posterior position was utilized. Axillary roll placed. YARON hose and SCDs on the nonoperative limb utilized throughout the procedure. Operative lower extremity was prepped padded and draped in the usual orthopedic sterile fashion for the procedure. I injected the pain relieving solution in the standard sterile technique of the soft tissues of the hip carefully. Incision was made curving over the tip of the greater trochanter posteriorly. Full thickness skin flaps are raised down on the fascia destiny. Fascia destiny was opened in length with our incision. Charnley self-retaining hip retractor was carefully placed by the surgeon. Leg was appropriately rotated by the teacher's assistant. Retractor was used to lift the abductors anteriorly to visualize the piriformis tendon and external rotators. Piriformis tendon and external rotators released off the greater trochanter with the Bovie. Tagging suture was placed in each of these separately. We then split the tissue superior to the piriformis tendon through capsule and onto the pelvis. Acetabular labrum was preserved. Retractors were carefully placed around the femoral neck. Displaced unstable femoral neck fracture identified. cutting guide was utilized to map out the proposed cut approximately 1 fingerbreadth above the lesser trochanter. This femoral neck cut was carried out with a saw. Fractured femoral head removed and measured and inspected. Femoral head was measured. Appropriate trial was utilized. A proximal femoral elevator utilized. We used a sharp awl entering down inside the bone of the proximal femur. Utilized the [employer] cutting osteotome the proximal lateral greater trochanteric region. The fragment removed. Broaching was then done from the smallest broach, upto the appropriate size. Good stability was confirmed. We then trialed the construct with a standard neck length and appropriate sized femoral head. We were happy with the construct. Good stability to flexion, rotation. At this point trials removed. 2 full batches of bone cement were mixed. 2 sponges were placed in the acetabulum we prepared the canal with brushing. Cement restrictor was placed down to the appropriate depth. It was thoroughly irrigated clean and dry. When the cement was as the appropriate texture, we pressurized cement down in the femoral canal. The appropriate size stem then hammered into the proximal femur and seated down to a similar position as the trial had. Excess bone cement removed. Stem was held still while cement fully hardened. Pain relieving solution was injected while this was occurring. The cement was fully hardened, sponges were removed from the acetabulum. We now again trialed and appropriate neck length decided upon. It was then opened. Now impacted the appropriate sized femoral head, neck construct onto the clean dried trunion. Was noted to be stable. Hip was inspected, and joint was reduced for a final time. Good hip stability and leg lengths noted. This was then irrigated with saline and cleaned. Next the remainder of the pain relieving solution was injected carefully throughout the soft tissues of the hip joint. Closure was carried out with a combination of #1 Vicryl repairing the hip capsule as well as piriformis tendon and external rotators to bone, running #2 strata fix in the fascia destiny, followed by mid layer #1 Vicryl with #1 strata fix running. Next running 0 strata fix, followed by skin dawn, Xeroform, Mepilex dressing. We placed YARON hose and SCD on the operative leg. Patient awoken from the anesthetic and transferred back to room bed in recovery room in satisfactory condition. Patient will be admitted to the hospital. Hospitalist service will continue to manage the medical issues. Hopeful discharge to home or ECF in 2-3 days. This note was generated with [employer] dictation software. It may contain incorrect words, spelling, and punctuation that were not noted in checking the note before signing.
--- NOTE | 2019-06-05 14:45 | RAD_ITS ---
STUDY: X-RAY CHEST REASON FOR EXAM: Male, 69 years old. POST OP DYSPNEA -- HX OF RIGHT LUNG REMOVAL TECHNIQUE: Single AP portable view of the chest. COMPARISON: Comparison is made with prior study June 04, 2019. FINDINGS: EKG electrodes are seen. Once again, the patient is status post right pneumonectomy with resultant opacification of the right hemithorax. There is evidence of calcified pleural plaques in the right hemithorax as well as rib deformities due to the surgery. Stable appearance of the left lung with increased markings at the lung bases suggestive of scarring. Normal size heart. Normal mediastinum and adolfo. Normal visualized pulmonary arteries. Normal visualized aortic arch and descending thoracic aorta. There are diffuse degenerative changes of the visualized thoracic spine. Normal visualized ribs, clavicles, and shoulders. There is no demonstrated abnormality of the visualized soft tissue structures of the upper abdomen. RAD/Chest 1 View (Portable) IMPRESSION: Stable examination. Electronically Signed: Rashel Alexandra, at 15:37 EDT , Service support ,
--- NOTE | 2019-06-05 16:33 | SUR.PHASEI ---
PACU: Drs. Harvey and Janet have conferred and agree to transfer patient to PCU on 5 L/min simple mask. Patient continues to have course lung sounds throughout on left with audible courseness s/p right pneumonectomy.
--- NOTE | 2019-06-05 18:25 | RAD_ITS ---
STUDY: X-RAY CHEST REASON FOR EXAM: Male, 69 years old. tachypnea, shortness of breath TECHNIQUE: Single AP portable view of the chest. COMPARISON: June 05, 2019 FINDINGS: No significant interval change. Complete obscuration of the right hemithorax. Increased airspace disease/pulmonary edema throughout the left lung. Remainder is unchanged RAD/Chest 1 View (Portable) IMPRESSION: As above Electronically Signed: Colin Fatima DO at 19:23 EDT Tel , Service support ,
[2019-06-05] MEDS: Aspirin 81 MG TAB.CHEW PO (21:14)
[2019-06-05] MEDS: Pravastatin 40 MG Tablet PO (21:15)
[2019-06-05] MEDS: Mirtazapine 15 MG Tablet PO (21:15)
[2019-06-05] MEDS: Ramipril 10 MG Capsule PO (21:15)
[2019-06-05] MEDS: Cefazolin 1 GM/50 ML BAG IV (22:32)
--- NOTE | 2019-06-05 23:30 | NURSING ---
This nurse in room assessing pt at [id number]. Pt tachypneic, b/p's low. Notified paper finisher. Took pt's b/p manually, 58/42. Dr. Walden paged coating operator at [phone]. Spoke with Dr. Walden at 1211, decision made to transfer pt up to ICU for further management. CMa, RN
[2019-06-06] VITALS (16 sets, daily range): BP systolic 56–127; BP diastolic 34–90; PULSE 21–97; RESP 0–46; TEMP 33.3–36.6; O2SAT 0–98; BMI 17.5
--- NOTE | 2019-06-06 00:09 | NURSING ---
Notified that pt was transferred to bed 5 in the ICU. voiced understanding. Mason RN
[2019-06-06] MEDS: 0.9% Saline Lock 10 ML Syringe IV (01:26)
--- NOTE | 2019-06-06 03:08 | NURSING ---
Attempted to check BP in right arm, left calf, and left arm. Left arm BP read 127/58 after 2 tries. Will monitor BP on left arm and titrate Levo down.
--- NOTE | 2019-06-06 03:14 | NURSING ---
On monitor pt's RR steadily declining from 40's down to 20's. By the time this RN went to pt's room, reading apnea on monitor. Pt. not breathing, CODE BLUE called. See CODE documentation.
--- NOTE | 2019-06-06 03:43 | PN_ITS ---
Patient Problems: Active and Suspected Problems Hip fracture (Acute) Reason for Visit: called to floor for sofy quan Patient in ICU and observed going into acute respiratory failure and then respiratory arrest. Sofy quan was called. The patient is status post hip surgery earlier today and has one lung. He had some low blood pressures in the PACU and was then transferred to the PCU where he required BIPAP and he was oxygenating well but had a labile blood pressure so he was earlier transferred to the ICU for close monitoring. The patient had ongoing CPR and had received one dose of epinephrine when I entered the room. I intubated the patient successfully and rhythm was analyzed. There was gumaro blood suctioned through the ET tube. He was in Vtac so initial shock given and cpr resumed along with second dose of epinephrine. The code continued until the next rhythm check and was found to be in v-fib and second shock was given with cpr immediately following. Amiodarone was given. The ACLS algorithm was followed. Unfortunately we were unable to resuscitate him successfully. All team members agreed to stop our efforts. Time of was 3:37 am on 06/06/19 Vitals/I&O's: Vital Signs Temp Pulse Resp BP Pulse Ox 97.4 F L 96 39 H 87/66 L 98 06/06/19 02:00 06/06/19 02:30 06/06/19 02:00 06/06/19 02:30 06/06/19 02:00 Oxygen Flow Rate (L/min) 6 Oxygen Delivery Method Bi-pap Weight: 108 lb 3.951 oz Body Mass Index (BMI) 17.4 Intake and Output for Last 24 Hours 06/04/19 06/05/19 06/06/19 23:59 23:59 23:59 Intake Total 2066.67 / 2066.67 13.45 / 13.45 Output Total 1000 / 1000 Balance 1066.67 / 1066.67 13.45 / 13.45 Microbiology Past 72 Hours 06/04/19 20:15 Urine Catheter - Gordillo Urine Culture - Preliminary Culture exhibits no growth. Laboratory Results 06/04/19 20:30: Vitamin D 25-Hydroxy 22.5 Current Medications Acetaminophen (Tylenol) 650 mg PO Q6H PRN PRN PRN Reason: Pain Score 1-10/Temp > 100.7 F Al Hydroxide/Mg Hydroxide (Mylanta Ii) 30 ml PO Q6H PRN PRN PRN Reason: Gastric Burning Albuterol/Ipratropium (Duoneb) 3 ml INHALATION Q4H.RT [facility] Last Admin: 06/05/19 21:00 Dose: 3 ml Documented by: Aspirin (Aspirin, Baby) 81 mg PO BID [facility] Last Admin: 06/05/19 21:14 Dose: 81 mg Documented by: Budesonide (Pulmicort Aerosol) 0.5 mg INHALATION Q12H.RT [facility] Last Admin: 06/05/19 21:00 Dose: 0.5 mg Documented by: Calcium/Vitamin D (Os-Tucker 500mg + D) 1 tablet PO BIDCM [facility] Last Admin: 06/05/19 17:37 Dose: Not Given Documented by: Fentanyl Citrate (Sublimaze (100mcg Ampule)) 25 mcg IV Q2H PRN PRN PRN Reason: pain 6-10/10 Guaifenesin (Mucinex) 1,200 mg PO BID [facility] Last Admin: 06/05/19 21:22 Dose: Not Given Documented by: Cefazolin Sodium () 1 gm in 50 mls @ 150 mls/hr IV Q6H [facility] Stop: 06/06/19 04:19 Last Infusion: 06/05/19 22:52 Dose: Infused Documented by: Norepinephrine Bitartrate 8 mg (/ Sodium Chloride) 250 mls @ 9.375 mls/hr CONT INF .[id number] [facility]; Protocol Last Titration: 06/06/19 02:30 Dose: 7 mcg/min, 13.1 mls/hr Documented by: Melatonin (Melatonin) 3 mg PO QHS PRN PRN PRN Reason: INSOMNIA Mirtazapine (Remeron) 15 mg PO QHS [facility] Last Admin: 06/05/19 21:15 Dose: 15 mg Documented by: Nutritional Formula (Lactose Free) (Ensure Clear) 120 ml PO 4X/DAY [facility] Last Admin: 06/05/19 21:21 Dose: Not Given Documented by: Ondansetron HCl (Zofran) 4 mg IV Q8H PRN PRN PRN Reason: NAUSEA/VOMITING Oxycodone HCl (Oxyir) 10 mg PO Q4H PRN PRN PRN Reason: Pain Score 4-5/10 Last Admin: 06/05/19 01:54 Dose: 10 mg Documented by: Pravastatin Sodium (Pravachol) 40 mg PO QHS [facility] Last Admin: 06/05/19 21:15 Dose: 40 mg Documented by: Prochlorperazine Edisylate (Compazine Iv) 5 mg IV Q4H PRN PRN PRN Reason: Breakthrough nausea/vomiting Ramipril (Altace) 10 mg PO QHS [facility] Last Admin: 06/05/19 21:15 Dose: 10 mg Documented by: Senna/Docusate Sodium (Senokot-S, Michelle-Colace) 2 tablet PO BID [facility] Last Admin: 06/05/19 21:22 Dose: Not Given Documented by: Sodium Chloride () 10 - 40 ml IV UD PRN PRN Reason: SALINE FLUSH Last Admin: 06/06/19 01:26 Dose: 10 ml Documented by: Throat Lozenges (Cepacol Sore Throat Lozenge) 1 lozenge MUCOUS MEM Q2H PRN PRN PRN Reason: SORE THROAT STROKE Vital Signs/Narrative: Vital Signs Temp Pulse Resp BP BP Pulse Ox 06/06/19 02:30 96 87/66 L 06/06/19 02:15 95 87/64 L 06/06/19 02:00 97.4 F L 94 39 H 91/77 98 06/06/19 01:45 92 39 H 72/53 L 96 06/06/19 01:30 90 43 H 62/50 L 96 06/06/19 01:25 90 29 H 63/44 L 95 06/06/19 01:00 96.5 F L 89 30 H 72/57 L 93 06/06/19 00:45 96.1 F L 92 36 H 77/60 L 96 06/06/19 00:30 95.3 F L 92 46 H 81/66 L 97 06/06/19 00:15 92.0 F L 97 36 H 87/68 L 95 06/06/19 00:06 90 06/06/19 00:00 92.0 F L 94 40 H 116/90 H 116/90 H 70 06/05/19 23:50 92 29 H 95 Medical Necessity - Tobacco Use Smoking Status: Former smoker Tobacco Use: Non-smoker Assessment/Plan All Active Problems Hip fracture (Acute)
--- NOTE | 2019-06-06 04:20 | NURSING ---
In the last 1 hour of life pt. given 6 Epinephrine's, 1 Sodium bicarb, 2 doses of Amiodarone, and 350ml's of fluids.
--- NOTE | 2019-06-06 08:48 | PCM.DEATH ---
Preliminary Cause of Acute respiratory failure and respiratory arrest. Date of Admission: 06/04/19 Date of : 06/06/19 - Principle Diagnosis #1 acute respiratory failure, postoperative complications. #2 V. fib/V. tach cardiac arrest. #3 labile hypertension. #4 patient with 1 lung, status post right pneumonectomy, chronic. Problem List: #1 acute traumatic impacted right femoral neck fracture, status post right hip cemented hemiarthroplasty. #2 History of lung cancer status post right pneumonectomy. #3 COPD. #4 hypertension. #5 hyperlipidemia. Hospital Course This is a 69 years old male patient presented to the emergency room because of right hip pain after a fall and he was found to have acute traumatic impacted right femoral neck fracture. He was evaluated preoperatively and he was deemed to be at at least at moderate risk for intraoperative and postoperative complications based on his age, past medical history and functional status. There was no indication to do any further testing. Chest x-ray reviewed and revealed status post right pneumonectomy. EKG revealed normal sinus rhythm with no acute changes. Patient had 2D echocardiogram on January, that revealed normal LV size, ejection fraction was 75%, stage II diastolic dysfunction, small pericardial effusion without evidence of cardiac tamponade. Orthopedic surgery consulted and patient went for surgery with a right hip cemented hemiarthroplasty. Postoperatively, patient's blood pressure became labile, was very high and he was given IV labetalol in the PACU as well as IV Lasix because there was a concern that he may have volume overload. Shortly after, patient became hypotensive but his blood pressure somewhat improved. He was transferred to PCU for close monitoring, started on BiPAP because he required oxygen of up to 8 L. Chest x-ray repeated and revealed probable left pulmonary vascular congestion. Again, patient became hypotensive and we were not able to give him IV Lasix for diuresis. Later that night, patient became more short of breath, dyspneic and tachypneic and he was transferred to ICU for close monitoring. After transfer to ICU, blood pressure kind of stabilized and patient maintained on BiPAP. He was started on IV Levophed drip for hypotension. EMG this morning, patient heart rate started to decline and patient became apneic. [facility] called and CPR initiated. Patient was intubated and received IV epinephrine. Telemetry revealed V. tach for which patient was shocked and CPR continued. CPR continued and next rhythm check revealed V. fib for which second shock was given and CPR resumed immediately. Amiodarone also was given. ACLS algorithm was followed. CPR was continued for more than 25 minutes and unfortunately, we were unable to resuscitate the patient. CPR terminated. Time of was 3:37 AM on June 06, 2019. Inpatient E&M: [id number] [facility]
== END 2019-06-06 03:37 | DRG 469 ==
LOC: ED 17:49 → MS3 19:17 → ICU 06-06 08:25 → PCU 06-06 08:25
PROVIDERS: Orthopaedic Surgery; Admitting Provider Internal Medicine; Emergency Provider Emergency Medicine; PCP Family Medicine; Visit Provider Hospitalist
PROC: 0SR90JZ Replacement of Right Hip Joint with Synthetic Substitute, Open Approach (ICD-10-PCS; CPT 27130; principal; 2019-06-05 10:45)
DX: S72.011A Unspecified intracapsular fracture of right femur, initial encounter for closed fracture (principal); J95.821 Acute postprocedural respiratory failure; Z68.1 Body mass index [BMI] 19.9 or less, adult; I47.2 Ventricular tachycardia; E46 Unspecified protein-calorie malnutrition; I49.01 Ventricular fibrillation; W19.XXXA Unspecified fall, initial encounter; E78.5 Hyperlipidemia, unspecified; I10 Essential (primary) hypertension; I46.9 Cardiac arrest, cause unspecified; E86.0 Dehydration; J44.9 Chronic obstructive pulmonary disease, unspecified; Y83.8 Other surgical procedures as the cause of abnormal reaction of the patient, or of later complication, without mention of misadventure at the time of the procedure; S52.692D Other fracture of lower end of left ulna, subsequent encounter for closed fracture with routine healing; W19.XXXD Unspecified fall, subsequent encounter; Z90.2 Acquired absence of lung [part of]; Z85.118 Personal history of other malignant neoplasm of bronchus and lung; Z87.891 Personal history of nicotine dependence
CPT/HCPCS: 31500; 36415; 70450; 71045; 73502; 80048; 81001; 82306; 83735; 84100; 84484; 85025; 85610; 85730; 86850; 86900; 86901; 87086; 87641; 88305; 88311; 92950; 93005; 94002; 94640; 94799; 99251; 99285; C1776; J7030; J7050; J7120; A4216; G0463; J1940